=== PATIENT | male | born 1940 | race American Indian/Alaskan Native ===

== ENCOUNTER 2019-04-06 09:56 | Inpatient (IN) | payer MEDICARE, OTHER ==
[2019-04-06 11:27] LABS: Bacteria,Urine 2+ /HPF (Negative); Bilirubin,Urine NEG (Negative); Blood,Urine LG (Negative); Color,Urine Amber (Yellow); Urobilinogen,Urine < 2.0 mg/dL (<2.0)
[2019-04-06 11:32] LABS: Protein,Urine >2000 mg dL mg/dL (Negative); RBC,Urine > 182.0 /HPF (0.0-6.0); WBC,Urine > 182.0 /HPF (0.0-6.0)
[2019-04-06 11:37] LABS: Hematocrit 41.5 % (35.5-45.6); Hemoglobin 13.7 gm/dl (11.8-15.2); Mean Corpuscular HGB Conc 33 % (32-34); Mean Corpuscular Volume 96 fl (84-94); Platelet Count 207 K/mm3 (140-440); Red Blood Count 4.32 M/mm3 (3.65-5.03); Red Cell Distribution Width 13.8 % (13.2-15.2)
[2019-04-06] MEDS ORDERED: NORCO 5/325 PO ONE (11:42)
[2019-04-06] MEDS ORDERED: TYLENOL PO ONE (11:48)
[2019-04-06 11:59] LABS: BUN/Creatinine Ratio 18; Blood Urea Nitrogen 18 mg/dL (9-20); Calcium 9.2 mg/dL (8.4-10.2); Hemolysis Index 9
[2019-04-06 13:13] LABS: Basophils % (Manual) 0 % (0.0-1.8); Eosinophils % (Manual) 0 % (0.0-4.3); Total Cells Counted 100
[2019-04-06 13:14] LABS: Anisocytosis Few; Ovalocytes Few; Platelet Estimate Consistent w Auto; Poikilocytosis Few
[2019-04-06] MEDS ORDERED: ATIVAN PO ONE (13:36)
[2019-04-06] MEDS ORDERED: NACL 0.9% 1000 ML 1,000 ML IV ONE (13:40)
[2019-04-06] MEDS ORDERED: ROCEPHIN/NS 1 GM/50 ML 1 GM/50 ML BAG IV ONE (13:40)
[2019-04-06] MEDS ORDERED: HumuLIN R IV ONE (13:40)
--- NOTE | 2019-04-06 13:42 | Emergency Department Report ---
ED General Adult HPI - General Chief complaint: Urogenital-Male Stated complaint: ABDOMINAL PAIN Time Seen by Provider: 04/06/19 10:45 Source: patient Mode of arrival: Stretcher Limitations: No Limitations - History of Present Illness Initial comments: 78-year-old male with a history of prostate cancer and an indwelling Noel. His Noel stopped draining today. He noticed some blood in his urine. He has not had any obvious fever or chills. He doesn't report any other symptoms. His Noel was changed upon his arrival. He stated he did have relief of his suprapubic pain. -: Gradual, hour(s), days(s) Location: abdomen Radiation: non-radiation Severity scale (0 -10): 3 Quality: aching Consistency: constant Worsens with: none Associated Symptoms: other (hematuria) - Related Data Home Medications Medication Instructions Recorded Confirmed Last Taken Carvedilol [Coreg] 25 mg PO BID 04/02/13 04/06/19 04/05/19 Insulin Aspart Prot/Aspart(Nf) 12 unit SQ QPM 04/02/13 04/06/19 04/05/19 [NovoLOG Mix 70/30 VIAL] Insulin Aspart Prot/Aspart(Nf) 30 unit SQ QAM 04/02/13 04/06/19 04/05/19 [NovoLOG Mix 70/30 VIAL] Lisinopril [Zestril TAB] 40 mg PO QDAY 04/02/13 04/06/19 04/05/19 Metformin HCl [metFORMIN ER] 500 mg PO BID 04/02/13 04/06/19 04/05/19 Cholecalciferol (Vitamin D3) 1,000 units PO DAILY 05/31/15 04/06/19 04/05/19 [Vitamin D3 2,000 UNIT CAP] Oxybutynin [Ditropan] 1 tab PO DAILY 05/31/15 04/06/19 04/05/19 Vitamin E 1,000 unit PO DAILY 05/31/15 04/06/19 04/05/19 Acetaminophen with Codeine 1 each PO Q6HR PRN 08/05/15 04/06/19 04/05/19 [Acetaminophen-Codeine #2 TAB] B Cmplx 4/Vit D3/C/Folic/Zinc 1 each PO QDAY 08/05/15 04/06/19 04/05/19 [Vital-D Rx Tablet] Finasteride [Proscar] 5 mg PO QDAY 08/05/15 04/06/19 04/05/19 Omeprazole [PriLOSEC] 40 mg PO QDAY 08/05/15 04/06/19 04/05/19 Previous Rx's Medication Instructions Recorded Last Taken Type Aspirin EC [Aspirin Enteric Coated 81 mg PO QDAY #30 tablet.dr 06/03/15 04/05/19 Rx TAB] ISOSORBIDE MONOnitrate [Imdur ER] 30 mg PO DAILY #30 tab.er.24h 06/03/15 Rx amLODIPine [Norvasc] 10 mg PO QDAY #30 tablet 06/03/15 04/05/19 Rx Allergies Allergy/AdvReac Type Severity Reaction Status Date / Time diphenhydramine HCl Allergy Rash Verified 05/31/15 18:24 [From Benadryl] Iodinated Contrast Media Allergy Rash Verified 05/31/15 18:24 [Iodinated Contrast Media - IV Dye] ED Review of Systems ROS: Stated complaint: ABDOMINAL PAIN Other details as noted in HPI Constitutional: denies: chills, fever Eyes: denies: eye pain, eye discharge, vision change ENT: denies: ear pain, throat pain Respiratory: denies: cough, shortness of breath, wheezing Cardiovascular: denies: chest pain, palpitations Endocrine: no symptoms reported Gastrointestinal: abdominal pain. denies: nausea, diarrhea Genitourinary: hematuria. denies: urgency, dysuria Musculoskeletal: denies: back pain, joint swelling, arthralgia Skin: denies: rash, lesions Neurological: denies: headache, weakness, paresthesias Psychiatric: denies: anxiety, depression Hematological/Lymphatic: denies: easy bleeding, easy bruising ED Past Medical Hx - Past Medical History Hx Hypertension: Yes Hx Heart Attack/AMI: No Hx Congestive Heart Failure: Yes Hx Diabetes: Yes Hx Deep Vein Thrombosis: No Hx Pulmonary Embolism: No Hx Liver Disease: No Hx Arthritis: Yes Hx Asthma: Yes Hx COPD: No Hx Tuberculosis: No Additional medical history: anemia - Surgical History Hx Coronary Stent: No Hx Pacemaker: No Hx Internal Defibrillator: No Additional Surgical History: cataract surgery both eyes, hemorrhoidectomy - Social History Smoking Status: Never Smoker Substance Use Type: None - Medications Home Medications: Home Medications Medication Instructions Recorded Confirmed Last Taken Type Carvedilol [Coreg] 25 mg PO BID 04/02/13 04/06/19 04/05/19 History Insulin Aspart Prot/Aspart(Nf) 12 unit SQ QPM 04/02/13 04/06/19 04/05/19 History [NovoLOG Mix 70/30 VIAL] Insulin Aspart Prot/Aspart(Nf) 30 unit SQ QAM 04/02/13 04/06/19 04/05/19 History [NovoLOG Mix 70/30 VIAL] Lisinopril [Zestril TAB] 40 mg PO QDAY 04/02/13 04/06/19 04/05/19 History Metformin HCl [metFORMIN ER] 500 mg PO BID 04/02/13 04/06/19 04/05/19 History Cholecalciferol (Vitamin D3) 1,000 units PO DAILY 05/31/15 04/06/19 04/05/19 History [Vitamin D3 2,000 UNIT CAP] Oxybutynin [Ditropan] 1 tab PO DAILY 05/31/15 04/06/19 04/05/19 History Vitamin E 1,000 unit PO DAILY 05/31/15 04/06/19 04/05/19 History Aspirin EC [Aspirin Enteric Coated 81 mg PO QDAY #30 tablet.dr 06/03/15 04/06/19 04/05/19 Rx TAB] ISOSORBIDE MONOnitrate [Imdur ER] 30 mg PO DAILY #30 tab.er.24h 06/03/15 04/06/19 04/05/19 Rx amLODIPine [Norvasc] 10 mg PO QDAY #30 tablet 06/03/15 04/06/19 04/05/19 Rx Acetaminophen with Codeine 1 each PO Q6HR PRN 08/05/15 04/06/19 04/05/19 History [Acetaminophen-Codeine #2 TAB] B Cmplx 4/Vit D3/C/Folic/Zinc 1 each PO QDAY 08/05/15 04/06/19 04/05/19 History [Vital-D Rx Tablet] Finasteride [Proscar] 5 mg PO QDAY 08/05/15 04/06/19 04/05/19 History Omeprazole [PriLOSEC] 40 mg PO QDAY 08/05/15 04/06/19 04/05/19 History ED Physical Exam - General Limitations: No Limitations General appearance: alert, in no apparent distress - Head Head exam: Present: atraumatic, normocephalic - Eye Eye exam: Present: normal appearance. Absent: scleral icterus - ENT ENT exam: Present: mucous membranes moist - Neck Neck exam: Present: normal inspection - Respiratory Respiratory exam: Present: normal lung sounds bilaterally. Absent: respiratory distress - Cardiovascular Cardiovascular Exam: Present: regular rate, normal rhythm. Absent: systolic murmur, diastolic murmur, rubs, gallop - GI/Abdominal GI/Abdominal exam: Present: soft, normal bowel sounds. Absent: distended, tenderness, guarding, rigid - Rectal Rectal exam: Present: deferred - Extremities Exam Extremities exam: Present: normal inspection - Back Exam Back exam: Present: normal inspection - Neurological Exam Neurological exam: Present: alert, oriented X3, CN II-XII intact. Absent: motor sensory deficit - Psychiatric Psychiatric exam: Present: normal affect, normal mood - Skin Skin exam: Present: warm, dry, intact, normal color. Absent: rash - Other Other exam information: Blood noted in Noel bag which is draining well. ED Course Vital Signs 04/06/19 04/06/19 10:17 11:13 Temperature 98.4 F Pulse Rate 102 H 90 Respiratory 18 18 Rate Blood Pressure 160/74 Blood Pressure 128/52 [Left] O2 Sat by Pulse 98 95 Oximetry - Reevaluation(s) Reevaluation #1: Patient was found to have an elevated white blood cell count, hyperglycemia, elevated lactic acid level and infected urine. She is started on ceftriaxone. He is given IV fluid and insulin. He will be admitted to the hospitalist service for further care and evaluation. CT the abdomen and pelvis is ordered. 04/06/19 13:42 ED Medical Decision Making - Lab Data Result diagrams: 04/06/19 11:21 04/06/19 11:21 Laboratory Results - last 24 hr 04/06/19 04/06/19 04/06/19 11:08 11:21 11:21 WBC 14.0 H RBC 4.32 Hgb 13.7 Hct 41.5 MCV 96 H MCH 32 MCHC 33 RDW 13.8 Plt Count 207 Add Manual Diff Complete Total Counted 100 Seg Neutrophils % Die Sinker Seg Neuts % (Manual) 95.0 H Band Neutrophils % 0 Lymphocytes % (Manual) 1.0 L Reactive Lymphs % (Man) 0 Monocytes % (Manual) 2.0 Eosinophils % (Manual) 0 Basophils % (Manual) 0 Metamyelocytes % 2.0 Myelocytes % 0 Promyelocytes % 0 Blast Cells % 0 Nucleated RBC % Not Reportable Seg Neutrophils # Man 13.3 H Band Neutrophils # 0.0 Lymphocytes # (Manual) 0.1 L Abs React Lymphs (Man) 0.0 Monocytes # (Manual) 0.3 Eosinophils # (Manual) 0.0 Basophils # (Manual) 0.0 Metamyelocytes # 0.3 Myelocytes # 0.0 Promyelocytes # 0.0 Blast Cells # 0.0 WBC Morphology Not Reportable Hypersegmented Neuts Not Reportable Hyposegmented Neuts Not Reportable Hypogranular Neuts Not Reportable Smudge Cells Not Reportable Toxic Granulation Not Reportable Toxic Vacuolation Not Reportable Dohle Bodies Not Reportable Pelger-Huet Anomaly Not Reportable Martin Rods Not Reportable Platelet Estimate Consistent w auto Clumped Platelets Not Reportable Plt Clumps, EDTA Not Reportable Large Platelets Not Reportable Giant Platelets Not Reportable Platelet Satelliting Not Reportable Plt Morphology Comment Not Reportable RBC Morphology Not Reportable Dimorphic RBCs Not Reportable Polychromasia Not Reportable Hypochromasia Not Reportable Poikilocytosis Few Anisocytosis Few Microcytosis Not Reportable Macrocytosis Not Reportable Spherocytes Not Reportable Pappenheimer Bodies Not Reportable Sickle Cells Not Reportable Target Cells Not Reportable Tear Drop Cells Not Reportable Ovalocytes Few Helmet Cells Not Reportable Whitman-[place] Bodies Not Reportable Jackson Rings Not Reportable [place] Cells Not Reportable Bite Cells Not Reportable Crenated Cell Not Reportable Elliptocytes Not Reportable Acanthocytes (Spur) Not Reportable Rouleaux Not Reportable Hemoglobin C Crystals Not Reportable Schistocytes Not Reportable Malaria parasites Not Reportable Manuel Bodies Not Reportable Hem Pathologist Commnt No Sodium 129 L Potassium 3.8 Chloride 90.4 L Carbon Dioxide 19 L Anion Gap 23 BUN 18 Creatinine 1.0 Estimated GFR > 60 BUN/Creatinine Ratio 18 Glucose 296 H Calcium 9.2 Urine Color Isa Urine Turbidity Cloudy Urine pH 8.0 H Ur Specific [place] 1.014 Urine Protein >2000 mg dl Urine Glucose (UA) 50 Urine Ketones Neg Urine Blood Lg Urine Nitrite Pos Urine Bilirubin Neg Urine Urobilinogen < 2.0 Ur Leukocyte Esterase Lg Urine WBC (Auto) > 182.0 H Urine RBC (Auto) > 182.0 Urine Bacteria (Auto) 2+ Critical care attestation.: If time is entered above; I have spent that time in minutes in the direct care o f this critically ill patient, excluding procedure time. ED Disposition Clinical Impression: Acute pyelonephritis, Increased anion gap metabolic acidosis, Insulin dependent diabetes mellitus Hematuria Qualifiers: Hematuria type: gross Qualified Code(s): R31.0 - Gross hematuria Disposition: OP ADMIT IP TO THIS HOSP Is pt being admited?: Yes Does the pt Need Aspirin: No Condition: Stable Instructions: Diabetes Mellitus Type 2 in Adults (ED) Referrals: [facility] [Other] - 3-5 Days Time of Disposition: 13:45
[2019-04-06 14:12] LABS: INR 0.98 (0.87-1.13)
[2019-04-06 14:22] LABS: Alanine Aminotransferase 14 units/L (7-56); Bilirubin,Direct < 0.2 mg/dL (0-0.2)
--- NOTE | 2019-04-06 15:06 | Cat Scan Report ---
CT ABDOMEN AND PELVIS WITHOUT CONTRAST HISTORY: hematuria, history of prostate cancer, pyelonephri COMPARISON: None. TECHNIQUE: Axial CT images were obtained through the abdomen and pelvis without IV contrast. Sagittal and coronal reformatted images. All CT scans at this location are performed using CT dose reduction for ALARA by means of automated exposure control. FINDINGS: CT ABDOMEN: Lung Bases: Clear. Liver: No significant abnormality. Biliary: No significant abnormality. Spleen: No significant abnormality. Unenlarged. Pancreas: No significant abnormality. Adrenals: No significant abnormality. Kidneys: A 6 mm calcification is noted in the superior right kidney which may represent a nonobstruct ing stone. The kidneys are within normal limits otherwise. No hydronephrosis or focal lesion. Lymphatics: No lymphadenopathy. Vasculature: Diffuse aortic and iliac calcifications. No aneurysm. Bowel/Peritoneum: No significant abnormality. No free air. No free fluid. The appendix is not confide ntly identified. Mild sigmoid diverticulosis is noted. CT PELVIS: : The bladder is decompressed with a Noel catheter. No obvious bladder abnormality. The prostate g land is normal size. Osseous Structures: Mild thoracolumbar spondylosis. No suspicious bony lesion. Additional Findings: None IMPRESSION: Right renal calculus as described. No acute process is identified in the abdomen or pelvis. Atherosclerotic disease in the aorta. Signer Name: Michel Ford Jr, MD Signed: 04/06/2019 3:02 PM Workstation Name: [id number]
[2019-04-06] MEDS: TYLENOL PO PRN (20:25)
[2019-04-06] MEDS: NACL 0.9% 1000 ML 1,000 ML IV SCH (20:29)
--- NOTE | 2019-04-07 00:07 | History and Physical Report ---
History of Present Illness Date of examination: 04/06/19 Date of admission: 04/06/19 13:45 Chief complaint: No urination for one day History of present illness: 73-year-old male with history of prostate cancer, indwelling catheter, insulin- dependent diabetes, hypertension, and BPH comes in for Noel not draining any urine. Noel was changed and patient have symptomatic relief. Workup revealed high lactic acid and profound urinary tract infection. Patient also had altered sensorium--hence the admission. No fever or chills. Excess salivation because of Noel being blocked. Feels lethargic. Past Medical History Hypertension: Yes Congestive Heart Failure: Yes Diabetes: Yes Arthritis: Yes Asthma: Yes Additional medical history: anemia Surgical History Additional Surgical History: cataract surgery both eyes, hemorrhoidectomy Social History Smoking Status: Never Smoker Substance Use Type: None Family history Htn - Medications Home Medications: Home Medications Medication Instructions Recorded Confirmed Last Taken Type Carvedilol [Coreg] 25 mg PO BID 04/02/13 04/06/19 04/05/19 History Insulin Aspart Prot/Aspart(Nf) 12 unit SQ QPM 04/02/13 04/06/19 04/05/19 History [NovoLOG Mix 70/30 VIAL] Insulin Aspart Prot/Aspart(Nf) 30 unit SQ QAM 04/02/13 04/06/19 04/05/19 History [NovoLOG Mix 70/30 VIAL] Lisinopril [Zestril TAB] 40 mg PO QDAY 04/02/13 04/06/19 04/05/19 History Metformin HCl [metFORMIN ER] 500 mg PO BID 04/02/13 04/06/19 04/05/19 History Cholecalciferol (Vitamin D3) 1,000 units PO DAILY 05/31/15 04/06/19 04/05/19 History [Vitamin D3 2,000 UNIT CAP] Oxybutynin [Ditropan] 1 tab PO DAILY 05/31/15 04/06/19 04/05/19 History Vitamin E 1,000 unit PO DAILY 05/31/15 04/06/19 04/05/19 History Aspirin EC [Aspirin Enteric Coated 81 mg PO QDAY #30 tablet.dr 06/03/15 04/06/19 04/05/19 Rx TAB] ISOSORBIDE MONOnitrate [Imdur ER] 30 mg PO DAILY #30 tab.er.24h 06/03/15 04/06/19 04/05/19 Rx amLODIPine [Norvasc] 10 mg PO QDAY #30 tablet 06/03/15 04/06/19 04/05/19 Rx Acetaminophen with Codeine 1 each PO Q6HR PRN 08/05/15 04/06/19 04/05/19 History [Acetaminophen-Codeine #2 TAB] B Cmplx 4/Vit D3/C/Folic/Zinc 1 each PO QDAY 08/05/15 04/06/19 04/05/19 History [Vital-D Rx Tablet] Finasteride [Proscar] 5 mg PO QDAY 08/05/15 04/06/19 04/05/19 History Omeprazole [PriLOSEC] 40 mg PO QDAY 08/05/15 04/06/19 04/05/19 History Review of Systems ROS: Stated complaint: ABDOMINAL PAIN Other details as noted in HPI Constitutional: denies: chills, fever Eyes: denies: eye pain, eye discharge, vision change ENT: denies: ear pain, throat pain Respiratory: denies: cough, shortness of breath, wheezing Cardiovascular: denies: chest pain, palpitations Endocrine: no symptoms reported Gastrointestinal: abdominal pain. denies: nausea, diarrhea Genitourinary: hematuria. denies: urgency, dysuria Musculoskeletal: denies: back pain, joint swelling, arthralgia Skin: denies: rash, lesions Neurological: denies: headache, weakness, paresthesias Psychiatric: denies: anxiety, depression Hematological/Lymphatic: denies: easy bleeding, easy bruising . Medications and Allergies Allergies Allergy/AdvReac Type Severity Reaction Status Date / Time diphenhydramine HCl Allergy Rash Verified 05/31/15 18:24 [From Benadryl] Iodinated Contrast Media Allergy Rash Verified 05/31/15 18:24 [Iodinated Contrast Media - IV Dye] Home Medications Medication Instructions Recorded Confirmed Last Taken Type Carvedilol [Coreg] 25 mg PO BID 04/02/13 04/06/19 04/05/19 History Insulin Aspart Prot/Aspart(Nf) 12 unit SQ QPM 04/02/13 04/06/19 04/05/19 History [NovoLOG Mix 70/30 VIAL] Insulin Aspart Prot/Aspart(Nf) 30 unit SQ QAM 04/02/13 04/06/19 04/05/19 History [NovoLOG Mix 70/30 VIAL] Lisinopril [Zestril TAB] 40 mg PO QDAY 04/02/13 04/06/19 04/05/19 History Metformin HCl [metFORMIN ER] 500 mg PO BID 04/02/13 04/06/19 04/05/19 History Cholecalciferol (Vitamin D3) 1,000 units PO DAILY 05/31/15 04/06/19 04/05/19 History [Vitamin D3 2,000 UNIT CAP] Oxybutynin [Ditropan] 1 tab PO DAILY 05/31/15 04/06/19 04/05/19 History Vitamin E 1,000 unit PO DAILY 05/31/15 04/06/19 04/05/19 History Aspirin EC [Aspirin Enteric Coated 81 mg PO QDAY #30 tablet.dr 06/03/15 04/06/19 04/05/19 Rx TAB] ISOSORBIDE MONOnitrate [Imdur ER] 30 mg PO DAILY #30 tab.er.24h 06/03/15 04/06/19 04/05/19 Rx amLODIPine [Norvasc] 10 mg PO QDAY #30 tablet 06/03/15 04/06/19 04/05/19 Rx Acetaminophen with Codeine 1 each PO Q6HR PRN 08/05/15 04/06/19 04/05/19 History [Acetaminophen-Codeine #2 TAB] B Cmplx 4/Vit D3/C/Folic/Zinc 1 each PO QDAY 08/05/15 04/06/19 04/05/19 History [Vital-D Rx Tablet] Finasteride [Proscar] 5 mg PO QDAY 08/05/15 04/06/19 04/05/19 History Omeprazole [PriLOSEC] 40 mg PO QDAY 08/05/15 04/06/19 04/05/19 History Active Meds: Active Medications Acetaminophen (Tylenol) 650 mg PO Q4H PRN PRN Reason: Pain, Mild (1-3) Last Admin: 04/06/19 20:25 Dose: 650 mg Documented by: Sodium Chloride (Nacl 0.9% 1000 Ml) 1,000 mls @ 75 mls/hr IV DIRECT CAREY Stop: 04/07/19 12:00 Last Admin: 04/06/19 20:29 Dose: 75 mls/hr Documented by: Exam - Constitutional Vitals: Temp Pulse Resp BP Pulse Ox 99.3 F 87 20 128/52 96 04/06/19 20:44 04/06/19 20:44 04/06/19 20:44 04/06/19 20:44 04/06/19 20:44 General appearance: Present: no acute distress, well-nourished - EENT Eyes: Present: PERRL ENT: hearing intact, clear oral mucosa - Neck Neck: Present: supple, normal ROM - Respiratory Respiratory effort: normal Respiratory: bilateral: CTA - Cardiovascular Heart rate: 88 Rhythm: regular Heart Sounds: Present: S1 & S2. Absent: rub, click - Extremities Extremities: no ischemia, pulses intact, pulses symmetrical, No edema Peripheral Pulses: within normal limits - Abdominal General gastrointestinal: Present: soft, non-tender, non-distended, normal bowel sounds Male genitourinary: Present: normal - Integumentary Integumentary: Present: clear, warm, dry - Musculoskeletal Musculoskeletal: strength equal bilaterally, other (lethargic) - Psychiatric Psychiatric: appropriate mood/affect, intact judgment & insight, other (lethargic) - Neurologic Neurologic: CNII-XII intact, moves all extremities - Allied Health Allied health notes reviewed: nursing, case management Results - Labs CBC & Chem 7: 04/06/19 11:21 04/06/19 11:21 Labs: Laboratory Last Values WBC 14.0 K/mm3 (4.5-11.0) H 04/06/19 11:21 RBC 4.32 M/mm3 (3.65-5.03) 04/06/19 11:21 Hgb 13.7 gm/dl (11.8-15.2) 04/06/19 11:21 Hct 41.5 % (35.5-45.6) 04/06/19 11:21 MCV 96 fl (84-94) H 04/06/19 11:21 MCH 32 pg (28-32) 04/06/19 11:21 MCHC 33 % (32-34) 04/06/19 11:21 RDW 13.8 % (13.2-15.2) 04/06/19 11:21 Plt Count 207 K/mm3 (140-440) 04/06/19 11:21 Add Manual Diff Complete 04/06/19 11:21 Total Counted 100 04/06/19 11:21 Seg Neutrophils % Clinical Training Specialist 04/06/19 11:21 Seg Neuts % (Manual) 95.0 % (40.0-70.0) H 04/06/19 11:21 Band Neutrophils % 0 % 04/06/19 11:21 Lymphocytes % (Manual) 1.0 % (13.4-35.0) L 04/06/19 11:21 Reactive Lymphs % (Man) 0 % 04/06/19 11:21 Monocytes % (Manual) 2.0 % (0.0-7.3) 04/06/19 11:21 Eosinophils % (Manual) 0 % (0.0-4.3) 04/06/19 11:21 Basophils % (Manual) 0 % (0.0-1.8) 04/06/19 11:21 Metamyelocytes % 2.0 % 04/06/19 11:21 Myelocytes % 0 % 04/06/19 11:21 Promyelocytes % 0 % 04/06/19 11:21 Blast Cells % 0 % 04/06/19 11:21 Nucleated RBC % Not Reportable 04/06/19 11:21 Seg Neutrophils # Man 13.3 K/mm3 (1.8-7.7) H 04/06/19 11:21 Band Neutrophils # 0.0 K/mm3 04/06/19 11:21 Lymphocytes # (Manual) 0.1 K/mm3 (1.2-5.4) L 04/06/19 11:21 Abs React Lymphs (Man) 0.0 K/mm3 04/06/19 11:21 Monocytes # (Manual) 0.3 K/mm3 (0.0-0.8) 04/06/19 11:21 Eosinophils # (Manual) 0.0 K/mm3 (0.0-0.4) 04/06/19 11:21 Basophils # (Manual) 0.0 K/mm3 (0.0-0.1) 04/06/19 11:21 Metamyelocytes # 0.3 K/mm3 04/06/19 11:21 Myelocytes # 0.0 K/mm3 04/06/19 11:21 Promyelocytes # 0.0 K/mm3 04/06/19 11:21 Blast Cells # 0.0 K/mm3 04/06/19 11:21 WBC Morphology Not Reportable 04/06/19 11:21 Hypersegmented Neuts Not Reportable 04/06/19 11:21 Hyposegmented Neuts Not Reportable 04/06/19 11:21 Hypogranular Neuts Not Reportable 04/06/19 11:21 Smudge Cells Not Reportable 04/06/19 11:21 Toxic Granulation Not Reportable 04/06/19 11:21 Toxic Vacuolation Not Reportable 04/06/19 11:21 Dohle Bodies Not Reportable 04/06/19 11:21 Pelger-Huet Anomaly Not Reportable 04/06/19 11:21 Martin Rods Not Reportable 04/06/19 11:21 Platelet Estimate Consistent w auto 04/06/19 11:21 Clumped Platelets Not Reportable 04/06/19 11:21 Plt Clumps, EDTA Not Reportable 04/06/19 11:21 Large Platelets Not Reportable 04/06/19 11:21 Giant Platelets Not Reportable 04/06/19 11:21 Platelet Satelliting Not Reportable 04/06/19 11:21 Plt Morphology Comment Not Reportable 04/06/19 11:21 RBC Morphology Not Reportable 04/06/19 11:21 Dimorphic RBCs Not Reportable 04/06/19 11:21 Polychromasia Not Reportable 04/06/19 11:21 Hypochromasia Not Reportable 04/06/19 11:21 Poikilocytosis Few 04/06/19 11:21 Anisocytosis Few 04/06/19 11:21 Microcytosis Not Reportable 04/06/19 11:21 Macrocytosis Not Reportable 04/06/19 11:21 Spherocytes Not Reportable 04/06/19 11:21 Pappenheimer Bodies Not Reportable 04/06/19 11:21 Sickle Cells Not Reportable 04/06/19 11:21 Target Cells Not Reportable 04/06/19 11:21 Tear Drop Cells Not Reportable 04/06/19 11:21 Ovalocytes Few 04/06/19 11:21 Helmet Cells Not Reportable 04/06/19 11:21 [place] Pillar Bodies Not Reportable 04/06/19 11:21 [place] Rings Not Reportable 04/06/19 11:21 [place] Cells Not Reportable 04/06/19 11:21 Bite Cells Not Reportable 04/06/19 11:21 Crenated Cell Not Reportable 04/06/19 11:21 Elliptocytes Not Reportable 04/06/19 11:21 Acanthocytes (Spur) Not Reportable 04/06/19 11:21 Rouleaux Not Reportable 04/06/19 11:21 Hemoglobin C Crystals Not Reportable 04/06/19 11:21 Schistocytes Not Reportable 04/06/19 11:21 Malaria parasites Not Reportable 04/06/19 11:21 Manuel Bodies Not Reportable 04/06/19 11:21 Hem Pathologist Commnt No 04/06/19 11:21 PT 12.7 Sec. (12.2-14.9) 04/06/19 13:50 INR 0.98 (0.87-1.13) 04/06/19 13:50 APTT 30.0 Sec. (24.2-36.6) 04/06/19 13:50 Sodium 129 mmol/L (137-145) L 04/06/19 11:21 Potassium 3.8 mmol/L (3.6-5.0) 04/06/19 11:21 Chloride 90.4 mmol/L (98-107) L 04/06/19 11:21 Carbon Dioxide 19 mmol/L (22-30) L 04/06/19 11:21 Anion Gap 23 mmol/L 04/06/19 11:21 BUN 18 mg/dL (9-20) 04/06/19 11:21 Creatinine 1.0 mg/dL (0.8-1.5) 04/06/19 11:21 Estimated GFR > 60 ml/min 04/06/19 11:21 BUN/Creatinine Ratio 18 % 04/06/19 11:21 Glucose 296 mg/dL (75-100) H 04/06/19 11:21 POC Glucose 134 (70-105) H 04/06/19 22:18 Lactic Acid 1.00 mmol/L (0.7-2.0) 04/06/19 22:58 Calcium 9.2 mg/dL (8.4-10.2) 04/06/19 11:21 Total Bilirubin 0.50 mg/dL (0.1-1.2) 04/06/19 13:50 Direct Bilirubin < 0.2 mg/dL (0-0.2) 04/06/19 13:50 Indirect Bilirubin 0.3 mg/dL 04/06/19 13:50 AST 14 units/L (5-40) 04/06/19 13:50 ALT 14 units/L (7-56) 04/06/19 13:50 Alkaline Phosphatase 66 units/L (35-129) 04/06/19 13:50 Total Protein 7.4 g/dL (6.3-8.2) 04/06/19 13:50 Albumin 4.0 g/dL (3.9-5) 04/06/19 13:50 Albumin/Globulin Ratio 1.2 % 04/06/19 13:50 Urine Color Isa (Yellow) 04/06/19 11:08 Urine Turbidity Cloudy (Clear) 04/06/19 11:08 Urine pH 8.0 (5.0-7.0) H 04/06/19 11:08 Ur Specific [place] 1.014 (1.003-1.030) 04/06/19 11:08 Urine Protein >2000 mg dl mg/dL (Negative) 04/06/19 11:08 Urine Glucose (UA) 50 mg/dL (Negative) 04/06/19 11:08 Urine Ketones Neg mg/dL (Negative) 04/06/19 11:08 Urine Blood Lg (Negative) 04/06/19 11:08 Urine Nitrite Pos (Negative) 04/06/19 11:08 Urine Bilirubin Neg (Negative) 04/06/19 11:08 Urine Urobilinogen < 2.0 mg/dL (<2.0) 04/06/19 11:08 Ur Leukocyte Esterase Lg (Negative) 04/06/19 11:08 Urine WBC (Auto) > 182.0 /HPF (0.0-6.0) H 04/06/19 11:08 Urine RBC (Auto) > 182.0 /HPF (0.0-6.0) 04/06/19 11:08 Urine Bacteria (Auto) 2+ /HPF (Negative) 04/06/19 11:08 Short CBC 04/06/19 Range/Units 11:21 WBC 14.0 H (4.5-11.0) K/mm3 Hgb 13.7 (11.8-15.2) gm/dl Hct 41.5 (35.5-45.6) % Plt Count 207 (140-440) K/mm3 BMP 04/06/19 11:21 Sodium 129 L Potassium 3.8 Chloride 90.4 L Carbon Dioxide 19 L BUN 18 Creatinine 1.0 Glucose 296 H Calcium 9.2 Liver Function 04/06/19 Range/Units 13:50 Total Bilirubin 0.50 (0.1-1.2) mg/dL Direct Bilirubin < 0.2 (0-0.2) mg/dL AST 14 (5-40) units/L ALT 14 (7-56) units/L Alkaline Phosphatase 66 (35-129) units/L Albumin 4.0 (3.9-5) g/dL Urine 04/06/19 Range/Units 11:08 Urine Color Isa (Yellow) Urine pH 8.0 H (5.0-7.0) Ur Specific [place] 1.014 (1.003-1.030) Urine Protein >2000 mg dl (Negative) mg/dL Urine Glucose (UA) 50 (Negative) mg/dL - Imaging and Cardiology CT scan - abdomen: report reviewed Imaging and Cardiology: CT abdomen IMPRESSION: Right renal calculus as described. No acute process is identified in the abdomen or pelvis. Atherosclerotic disease in the aorta. Assessment and Plan Advance Directives: Yes (full code) VTE prophylaxis?: Chemical Plan of care discussed with patient/family: Yes - Patient Problems (1) SIRS (systemic inflammatory response syndrome) Current Visit: Yes Status: Acute Plan to address problem: Patient has IV white count and urinary tract infection (2) Acute encephalopathy Current Visit: Yes Status: Acute Plan to address problem: Secondary to urinary tract infection and elevated lactic acid with possible sepsis (3) Acute pyelonephritis Current Visit: Yes Status: Acute Plan to address problem: IV Rocephin pending urine cultures and blood cultures (4) Hypertension Current Visit: Yes Status: Chronic Qualifiers: Hypertension type: essential hypertension Qualified Code(s): I10 - Essential (primary) hypertension Plan to address problem: Continue antihypertensiveslaboratory white count 11. (5) Insulin dependent diabetes mellitus Current Visit: Yes Status: Acute Plan to address problem: Continue home insulin and coverage Check hemoglobin A1c (6) OAB (overactive bladder) Current Visit: Yes Status: Chronic Plan to address problem: Continue Ditropan (7) BPH (benign prostatic hyperplasia) Current Visit: Yes Status: Chronic Qualifiers: Lower urinary tract symptom presence: symptoms present Plan to address problem: Continue finasteride (8) GERD (gastroesophageal reflux disease) Current Visit: Yes Status: Acute (9) DVT prophylaxis Current Visit: Yes Status: Acute Plan to address problem: On heparin and GI prophylaxis
[2019-04-07] MEDS ORDERED: TYLENOL #3 PO PRN (00:13)
[2019-04-07] MEDS ORDERED: REGLAN IV PRN (00:15)
[2019-04-07] MEDS ORDERED: SODIUM CHLORIDE FLUSH SYRINGE 10 ML IV PRN (00:15)
[2019-04-07] MEDS ORDERED: ZOFRAN IV PRN (00:15)
[2019-04-07] MEDS ORDERED: PERCOCET 5/325 PO PRN (00:15)
[2019-04-07] MEDS ORDERED: DILAUDID IV PRN (00:15)
[2019-04-07] MEDS ORDERED: TYLENOL PO PRN (00:15)
[2019-04-07] MEDS: HEPARIN SUB-Q SCH ×3 (01:12→23:04)
[2019-04-07] MEDS: GLUCOPHAGE XR PO SCH ×3 (01:12→16:30)
[2019-04-07] MEDS: COREG PO SCH ×3 (01:13→23:02)
[2019-04-07] MEDS ORDERED: MIRALAX 3350 PO PRN (02:05)
[2019-04-07] MEDS: COLACE PO SCH ×3 (05:38→23:03)
[2019-04-07] MEDS: HumaLOG SUB-Q SCH ×4 (07:42→23:04)
[2019-04-07] MEDS: PROSCAR PO SCH (09:13)
[2019-04-07] MEDS: IMDUR PO SCH (09:14)
[2019-04-07] MEDS: DITROPAN PO SCH (09:15)
[2019-04-07] MEDS: PROTONIX PO SCH (09:15)
[2019-04-07] MEDS: HALFPRIN EC PO SCH (09:19)
[2019-04-07] MEDS: VITAMIN D3 PO SCH (09:19)
[2019-04-07] MEDS: ZESTRIL PO SCH (09:20)
[2019-04-07] MEDS: VITAMIN E CAP PO SCH (09:21)
[2019-04-07] MEDS: ROCEPHIN/NS 2 GM/100 ML 2 GM/100 ML BAG IV SCH (09:22)
[2019-04-07] MEDS: DULCOLAX PR PRN (09:22)
[2019-04-07] MEDS: NACL 0.9% 1000 ML 1,000 ML IV SCH (09:26)
[2019-04-07] MEDS ORDERED: ASPART SQ SCH ×2 (10:00→18:00)
[2019-04-07] MEDS ORDERED: INSULIN ASPART PROT SQ SCH ×2 (10:00→18:00)
[2019-04-07] MEDS: SODIUM CHLORIDE FLUSH SYRINGE 10 ML IV SCH ×2 (11:22→23:04)
--- NOTE | 2019-04-07 13:46 | Progress Note ---
Assessment and Plan Assessment and plan: (1) sepsis due to UTI Current Visit: Yes Status: Acute Plan to address problem: Patient has IV white count and urinary tract infection Patient still had fever (2) Acute encephalopathy Current Visit: Yes Status: Acute Plan to address problem: Secondary to urinary tract infection and elevated lactic acid with possible sepsis Resolved (3) UTI Current Visit: Yes Status: Acute Plan to address problem: IV Rocephin pending urine cultures and blood cultures (4) Hypertension Current Visit: Yes Status: Chronic Qualifiers: Hypertension type: essential hypertension Qualified Code(s): I10 - Essential (primary) hypertension Plan to address problem: Continue antihypertensives (5) Insulin dependent diabetes mellitus Current Visit: Yes Status: Acute Plan to address problem: Continue home insulin and coverage hemoglobin A1c 6.8 (6) OAB (overactive bladder) Current Visit: Yes Status: Chronic Plan to address problem: Continue Ditropan (7) BPH (benign prostatic hyperplasia) Current Visit: Yes Status: Chronic Qualifiers: Lower urinary tract symptom presence: symptoms present Plan to address problem: Continue finasteride (8) GERD (gastroesophageal reflux disease) Current Visit: Yes Status: Acute (9) DVT prophylaxis Current Visit: Yes Status: Acute Plan to address problem: On heparin and GI prophylaxis Disposition; Per clinical course History Interval history: Patient was seen and evaluated this morning, patient had episode of fever overnight. Patient was alert and oriented. Hospitalist Physical - Physical exam Narrative exam: Not in cardiopulmonary distress. The patient appeared well nourished and normally developed. Vital signs as documented. Head exam is unremarkable. No scleral icterus . Neck is without jugular venous distension, thyromegaly, or carotid bruits. Lungs are clear to auscultation. Cardiac exam reveals regular rate and Rhythm. Abdominal exam reveals normal bowel sounds, no masses, no organomegaly and no aortic enlargement. Extremities are nonedematous and both femoral and pedal pulses are normal. [employer] [employer] CONSULTANT: Alert and oriented 3. No focal weakness. - Constitutional Vitals: Temp Pulse Resp BP Pulse Ox 99.0 F 89 18 119/59 96 04/07/19 07:10 04/07/19 09:20 04/07/19 07:10 04/07/19 09:20 04/07/19 07:10 General appearance: Present: no acute distress, well-nourished Results - Labs CBC & Chem 7: 04/06/19 11:21 04/06/19 11:21 Labs: Laboratory Last Values WBC 14.0 K/mm3 (4.5-11.0) H 04/06/19 11:21 RBC 4.32 M/mm3 (3.65-5.03) 04/06/19 11:21 Hgb 13.7 gm/dl (11.8-15.2) 04/06/19 11:21 Hct 41.5 % (35.5-45.6) 04/06/19 11:21 MCV 96 fl (84-94) H 04/06/19 11:21 MCH 32 pg (28-32) 04/06/19 11:21 MCHC 33 % (32-34) 04/06/19 11:21 RDW 13.8 % (13.2-15.2) 04/06/19 11:21 Plt Count 207 K/mm3 (140-440) 04/06/19 11:21 Add Manual Diff Complete 04/06/19 11:21 Total Counted 100 04/06/19 11:21 Seg Neutrophils % Babcock Tester 04/06/19 11:21 Seg Neuts % (Manual) 95.0 % (40.0-70.0) H 04/06/19 11:21 Band Neutrophils % 0 % 04/06/19 11:21 Lymphocytes % (Manual) 1.0 % (13.4-35.0) L 04/06/19 11:21 Reactive Lymphs % (Man) 0 % 04/06/19 11:21 Monocytes % (Manual) 2.0 % (0.0-7.3) 04/06/19 11:21 Eosinophils % (Manual) 0 % (0.0-4.3) 04/06/19 11:21 Basophils % (Manual) 0 % (0.0-1.8) 04/06/19 11:21 Metamyelocytes % 2.0 % 04/06/19 11:21 Myelocytes % 0 % 04/06/19 11:21 Promyelocytes % 0 % 04/06/19 11:21 Blast Cells % 0 % 04/06/19 11:21 Nucleated RBC % Not Reportable 04/06/19 11:21 Seg Neutrophils # Man 13.3 K/mm3 (1.8-7.7) H 04/06/19 11:21 Band Neutrophils # 0.0 K/mm3 04/06/19 11:21 Lymphocytes # (Manual) 0.1 K/mm3 (1.2-5.4) L 04/06/19 11:21 Abs React Lymphs (Man) 0.0 K/mm3 04/06/19 11:21 Monocytes # (Manual) 0.3 K/mm3 (0.0-0.8) 04/06/19 11:21 Eosinophils # (Manual) 0.0 K/mm3 (0.0-0.4) 04/06/19 11:21 Basophils # (Manual) 0.0 K/mm3 (0.0-0.1) 04/06/19 11:21 Metamyelocytes # 0.3 K/mm3 04/06/19 11:21 Myelocytes # 0.0 K/mm3 04/06/19 11:21 Promyelocytes # 0.0 K/mm3 04/06/19 11:21 Blast Cells # 0.0 K/mm3 04/06/19 11:21 WBC Morphology Not Reportable 04/06/19 11:21 Hypersegmented Neuts Not Reportable 04/06/19 11:21 Hyposegmented Neuts Not Reportable 04/06/19 11:21 Hypogranular Neuts Not Reportable 04/06/19 11:21 Smudge Cells Not Reportable 04/06/19 11:21 Toxic Granulation Not Reportable 04/06/19 11:21 Toxic Vacuolation Not Reportable 04/06/19 11:21 Dohle Bodies Not Reportable 04/06/19 11:21 Pelger-Huet Anomaly Not Reportable 04/06/19 11:21 Martin Rods Not Reportable 04/06/19 11:21 Platelet Estimate Consistent w auto 04/06/19 11:21 Clumped Platelets Not Reportable 04/06/19 11:21 Plt Clumps, EDTA Not Reportable 04/06/19 11:21 Large Platelets Not Reportable 04/06/19 11:21 Giant Platelets Not Reportable 04/06/19 11:21 Platelet Satelliting Not Reportable 04/06/19 11:21 Plt Morphology Comment Not Reportable 04/06/19 11:21 RBC Morphology Not Reportable 04/06/19 11:21 Dimorphic RBCs Not Reportable 04/06/19 11:21 Polychromasia Not Reportable 04/06/19 11:21 Hypochromasia Not Reportable 04/06/19 11:21 Poikilocytosis Few 04/06/19 11:21 Anisocytosis Few 04/06/19 11:21 Microcytosis Not Reportable 04/06/19 11:21 Macrocytosis Not Reportable 04/06/19 11:21 Spherocytes Not Reportable 04/06/19 11:21 Pappenheimer Bodies Not Reportable 04/06/19 11:21 Sickle Cells Not Reportable 04/06/19 11:21 Target Cells Not Reportable 04/06/19 11:21 Tear Drop Cells Not Reportable 04/06/19 11:21 Ovalocytes Few 04/06/19 11:21 Helmet Cells Not Reportable 04/06/19 11:21 [place] Bodies Not Reportable 04/06/19 11:21 [place] Rings Not Reportable 04/06/19 11:21 Marisela Cells Not Reportable 04/06/19 11:21 Bite Cells Not Reportable 04/06/19 11:21 Crenated Cell Not Reportable 04/06/19 11:21 Elliptocytes Not Reportable 04/06/19 11:21 Acanthocytes (Spur) Not Reportable 04/06/19 11:21 Rouleaux Not Reportable 04/06/19 11:21 Hemoglobin C Crystals Not Reportable 04/06/19 11:21 Schistocytes Not Reportable 04/06/19 11:21 Malaria parasites Not Reportable 04/06/19 11:21 Manuel Bodies Not Reportable 04/06/19 11:21 Hem Pathologist Commnt No 04/06/19 11:21 PT 12.7 Sec. (12.2-14.9) 04/06/19 13:50 INR 0.98 (0.87-1.13) 04/06/19 13:50 APTT 30.0 Sec. (24.2-36.6) 04/06/19 13:50 Sodium 129 mmol/L (137-145) L 04/06/19 11:21 Potassium 3.8 mmol/L (3.6-5.0) 04/06/19 11:21 Chloride 90.4 mmol/L (98-107) L 04/06/19 11:21 Carbon Dioxide 19 mmol/L (22-30) L 04/06/19 11:21 Anion Gap 23 mmol/L 04/06/19 11:21 BUN 18 mg/dL (9-20) 04/06/19 11:21 Creatinine 1.0 mg/dL (0.8-1.5) 04/06/19 11:21 Estimated GFR > 60 ml/min 04/06/19 11:21 BUN/Creatinine Ratio 18 % 04/06/19 11:21 Glucose 296 mg/dL (75-100) H 04/06/19 11:21 POC Glucose 83 (70-105) 04/07/19 11:32 Hemoglobin A1c 6.8 % (4-6) H 04/07/19 03:58 Lactic Acid 1.00 mmol/L (0.7-2.0) 04/06/19 22:58 Calcium 9.2 mg/dL (8.4-10.2) 04/06/19 11:21 Total Bilirubin 0.50 mg/dL (0.1-1.2) 04/06/19 13:50 Direct Bilirubin < 0.2 mg/dL (0-0.2) 04/06/19 13:50 Indirect Bilirubin 0.3 mg/dL 04/06/19 13:50 AST 14 units/L (5-40) 04/06/19 13:50 ALT 14 units/L (7-56) 04/06/19 13:50 Alkaline Phosphatase 66 units/L (35-129) 04/06/19 13:50 Total Protein 7.4 g/dL (6.3-8.2) 04/06/19 13:50 Albumin 4.0 g/dL (3.9-5) 04/06/19 13:50 Albumin/Globulin Ratio 1.2 % 04/06/19 13:50 Urine Color Isa (Yellow) 04/06/19 11:08 Urine Turbidity Cloudy (Clear) 04/06/19 11:08 Urine pH 8.0 (5.0-7.0) H 04/06/19 11:08 Ur Specific [place] 1.014 (1.003-1.030) 04/06/19 11:08 Urine Protein >2000 mg dl mg/dL (Negative) 04/06/19 11:08 Urine Glucose (UA) 50 mg/dL (Negative) 04/06/19 11:08 Urine Ketones Neg mg/dL (Negative) 04/06/19 11:08 Urine Blood Lg (Negative) 04/06/19 11:08 Urine Nitrite Pos (Negative) 04/06/19 11:08 Urine Bilirubin Neg (Negative) 04/06/19 11:08 Urine Urobilinogen < 2.0 mg/dL (<2.0) 04/06/19 11:08 Ur Leukocyte Esterase Lg (Negative) 04/06/19 11:08 Urine WBC (Auto) > 182.0 /HPF (0.0-6.0) H 04/06/19 11:08 Urine RBC (Auto) > 182.0 /HPF (0.0-6.0) 04/06/19 11:08 Urine Bacteria (Auto) 2+ /HPF (Negative) 04/06/19 11:08 Active Medications - Current Medications Current Medications: Generic Name Dose Route Start Last Admin Trade Name Freq PRN Reason Stop Dose Admin Acetaminophen 650 mg 04/06/19 20:07 04/06/19 20:25 Tylenol PO 650 mg Q4H PRN Administration Pain, Mild (1-3) Acetaminophen/Codeine Phosphate 1 tab 04/07/19 00:13 04/07/19 09:15 Tylenol #3 PO 1 tab Q6H PRN Administration PAIN (4-6) Amlodipine Besylate 10 mg 04/07/19 10:00 04/07/19 09:20 Norvasc PO Not Given QDAY CAREY Aspirin 81 mg 04/07/19 10:00 04/07/19 09:19 Halfprin Ec PO 81 mg QDAY CAREY Administration Bisacodyl 10 mg 04/07/19 10:00 04/07/19 09:22 Dulcolax MI 10 mg QDAY PRN Administration constipation Carvedilol 25 mg 04/07/19 01:00 04/07/19 09:15 Coreg PO 25 mg BID CAREY Administration Cholecalciferol 1,000 unit 04/07/19 10:00 04/07/19 09:19 Vitamin D3 PO 1,000 unit DAILY CAREY Administration Docusate Sodium 100 mg 04/07/19 03:00 04/07/19 09:13 Colace PO 100 mg BID CAREY Administration Finasteride 5 mg 04/07/19 10:00 04/07/19 09:13 Proscar PO 5 mg QDAY CARE[facility] Administration Heparin Sodium (Porcine) 5,000 unit 04/07/19 00:30 04/07/19 09:26 Heparin SUB-Q 5,000 unit Q12HR C[facility]Y Administration Hydromorphone HCl 0.5 mg 04/07/19 00:15 04/07/19 01:14 Dilaudid IV 0.5 mg Q3H PRN Administration Pain , Severe (7-10) Ceftriaxone Sodium 2 gm in 100 mls @ 200 mls/hr 04/07/19 10:00 04/07/19 09:22 Rocephin/Ns 2 Gm/100 Ml IV 200 mls/hr Q24HR [facility] Administration Protocol Insulin Human Isoph/Insulin Regular 12 unit 04/07/19 18:00 Humulin 70/30 SUB-Q QPM CAREY Insulin Human Isoph/Insulin Regular 30 unit 04/07/19 08:00 04/07/19 08:34 Humulin 70/30 SUB-Q 30 unit QAMDIAB [facility] Administration Insulin Human Lispro 0 unit 04/07/19 07:30 04/07/19 11:59 Humalog SUB-Q Not Given ACHS [facility] Protocol Isosorbide Mononitrate 30 mg 04/07/19 10:00 04/07/19 09:14 Imdur PO 30 mg DAILY [facility] Administration Lisinopril 40 mg 04/07/19 10:00 04/07/19 09:20 Zestril PO Not Given QDAY [facility] Metformin HCl 500 mg 04/07/19 00:15 04/07/19 08:34 Glucophage Xr PO 500 mg BIDDIAB [facility] Administration Metoclopramide HCl 10 mg 04/07/19 00:15 Reglan IV Q6H PRN Nausea And Vomiting Ondansetron HCl 4 mg 04/07/19 00:15 Zofran IV Q8H PRN Nausea And Vomiting Oxybutynin Chloride 5 mg 04/07/19 10:00 04/07/19 09:15 Ditropan PO 5 mg DAILY [facility] Administration Oxycodone/Acetaminophen 1 tab 04/07/19 00:15 Percocet 5/325 PO Q6H PRN Pain, Moderate (4-6) Pantoprazole Sodium 40 mg 04/07/19 10:00 04/07/19 09:15 Protonix PO 40 mg QDAY [facility] Administration Polyethylene Glycol 17 gm 04/07/19 02:05 04/07/19 05:38 Miralax 3350 PO 17 gm QDAY PRN Administration Constipation Sodium Chloride 10 ml 04/07/19 10:00 04/07/19 11:22 Sodium Chloride Flush Syringe 10 Ml IV Not Given BID CAREY Sodium Chloride 10 ml 04/07/19 00:15 Sodium Chloride Flush Syringe 10 Ml IV PRN PRN LINE FLUSH Vitamin E 1,000 unit 04/07/19 10:00 04/07/19 09:21 Vitamin E Cap PO 1,000 unit DAILY CAREY Administration
[2019-04-07] MEDS: TYLENOL PO PRN (19:46)
[2019-04-07] MEDS ORDERED: PROVENTIL IH PRN (23:26)
[2019-04-08 06:04] LABS: Basophils % (Auto) 0.1 % (0.0-1.8); Eosinophils % (Auto) 0.7 % (0.0-4.3); Hematocrit 35.3 % (35.5-45.6); Hemoglobin 11.9 gm/dl (11.8-15.2); Lymphocytes # (Auto) 0.9 K/mm3 (1.2-5.4); Lymphocytes % (Auto) 12.1 % (13.4-35.0); Mean Corpuscular HGB Conc 34 % (32-34); Mean Corpuscular Volume 97 fl (84-94); Monocytes # (Auto) 0.9 K/mm3 (0.0-0.8); Monocytes % (Auto) 11.6 % (0.0-7.3); Platelet Count 190 K/mm3 (140-440); Red Blood Count 3.65 M/mm3 (3.65-5.03); Red Cell Distribution Width 13.5 % (13.2-15.2)
[2019-04-08 06:29] LABS: Alanine Aminotransferase 10 units/L (7-56); Albumin 3.1 g/dL (3.9-5); BUN/Creatinine Ratio 16; Blood Urea Nitrogen 11 mg/dL (9-20); Calcium 8.6 mg/dL (8.4-10.2); Hemolysis Index 15
[2019-04-08] MEDS: HumaLOG SUB-Q SCH ×2 (07:56→13:06)
[2019-04-08] MEDS: DULCOLAX PR PRN (07:57)
[2019-04-08] MEDS: GLUCOPHAGE XR PO SCH (08:39)
[2019-04-08] MEDS: HEPARIN SUB-Q SCH (10:00)
--- NOTE | 2019-04-08 10:07 | Discharge Summary ---
Providers - Providers Date of Admission: 04/06/19 13:45 Date of discharge: 04/08/19 Attending physician: JOSE M BELL MD Hospitalization Reason for admission: UTI, sepsis Condition: Stable Hospital course: 73-year-old male with history of prostate cancer, indwelling catheter, insulin- dependent diabetes, hypertension, and BPH comes in for Orellana not draining any urine. Orellana was changed and patient have symptomatic relief. Workup revealed high lactic acid and profound urinary tract infection. Patient also had altered sensorium--hence the admission. No fever or chills. Excess salivation because of Orellana being blocked. Feels lethargic. sepsis due to UTI; patient was treated with IV antibiotics and d/tamika with PO antibiotics. Acute Metabolic encephalopathy - resolved, patient was alert and oriented Hypertension; Continue antihypertensives Insulin dependent diabetes mellitus; Continue home insulin and coverage hemoglobin A1c 6.8 OAB (overactive bladder); patient has indwelling orellana catheter and will follow with urology Continue Ditropan Patient discharged back to SNF in a stable condition. Disposition: [id number] SNF [facility] Time spent for discharge: 34 minutes - Discharge Diagnoses (1) UTI (urinary tract infection) Status: Acute (2) Acute encephalopathy Status: Acute Comment: Metabolic (3) Sepsis, unspecified organism Status: Acute Qualifiers: Sepsis acute organ dysfunction status: with acute organ dysfunction Severe sepsis acute organ dysfunction type: encephalopathy Core Measure Documentation - Palliative Care Palliative Care/ Comfort Measures: Not Applicable - Core Measures Any of the following diagnoses?: none Exam - Physical Exam Narrative exam: Not in cardiopulmonary distress. The patient appeared well nourished and normally developed. Vital signs as documented. Head exam is unremarkable. No scleral icterus . Neck is without jugular venous distension, thyromegaly, or carotid bruits. Lungs are clear to auscultation. Cardiac exam reveals regular rate and Rhythm. Abdominal exam reveals normal bowel sounds, no masses, no organomegaly and no aortic enlargement. Extremities are nonedematous and both femoral and pedal pulses are normal. MANAGER DIVISION: Alert and oriented 3. No focal weakness. - Constitutional Vitals: Temp Pulse Resp BP Pulse Ox 98.5 F 75 20 143/61 98 04/08/19 07:16 04/08/19 07:16 04/08/19 07:16 04/08/19 07:16 04/08/19 07:16 Plan Activity: no restrictions Weight Bearing Status: Full Weight Bearing Diet: low salt, diabetic Follow up with: [facility] [Other] - 3-5 Days Prescriptions: cefUROXime [Ceftin] 250 mg PO Q12H #12 tablet Codeine Phosphate/Guaifenesin [Guaifenesin-Codeine Syrup] 10 ml PO Q6H PRN #1 bottle PRN Reason: Cough
[2019-04-08] MEDS ORDERED: DULCOLAX PO PRN (11:00)
[2019-04-08] MEDS: DITROPAN PO SCH (11:37)
[2019-04-08] MEDS: IMDUR PO SCH (11:37)
[2019-04-08] MEDS: COREG PO SCH (11:37)
[2019-04-08 11:38] VITALS: BP 146/61
[2019-04-08] MEDS: COLACE PO SCH (11:38)
[2019-04-08] MEDS: VITAMIN D3 PO SCH (11:38)
[2019-04-08] MEDS: PROTONIX PO SCH (11:38)
[2019-04-08] MEDS: HALFPRIN EC PO SCH (11:38)
[2019-04-08] MEDS: PROSCAR PO SCH (11:39)
[2019-04-08] MEDS: ZESTRIL PO SCH (11:39)
[2019-04-08] MEDS: ROCEPHIN/NS 2 GM/100 ML 2 GM/100 ML BAG IV SCH (11:40)
[2019-04-08] MEDS: SODIUM CHLORIDE FLUSH SYRINGE 10 ML IV SCH (11:41)
[2019-04-08] MEDS: VITAMIN E CAP PO SCH (11:41)
== END 2019-04-08 14:30 | DRG 871 ==
LOC: ED 09:56 → 2B-ACE 13:45
PROVIDERS: ADMIT Internal Medicine; ATTEND Internal Medicine
DX: A41.9 Sepsis, unspecified organism (principal); G93.41 Metabolic encephalopathy; N10 Acute pyelonephritis; E11.9 Type 2 diabetes mellitus without complications; N32.81 Overactive bladder; N40.0 Benign prostatic hyperplasia without lower urinary tract symptoms; K21.9 Gastro-esophageal reflux disease without esophagitis; I11.0 Hypertensive heart disease with heart failure; I50.9 Heart failure, unspecified; R31.9 Hematuria, unspecified; M19.90 Unspecified osteoarthritis, unspecified site; J45.909 Unspecified asthma, uncomplicated; Z85.46 Personal history of malignant neoplasm of prostate; Z79.4 Long term (current) use of insulin; Z82.49 Family history of ischemic heart disease and other diseases of the circulatory system; Z79.899 Other long term (current) drug therapy; Z79.82 Long term (current) use of aspirin
CPT/HCPCS: 36415; 74176; 80048; 80053; 80076; 81001; 82140; 82962; 83036; 85007; 85025; 85610; 85730; 87086; 94640; 96365; 96368; 96375; G0378; J0696; J1170; J1644; J1815; J7030

== ENCOUNTER 2019-05-14 11:08 | Emergency (ER) | payer SELFPAY ==
--- NOTE | 2019-05-14 11:20 | Event Note ---
ED Screening Note Date of service: 05/14/19 ED Screening Note: This initial assessment/diagnostic orders/clinical plan/treatment(s) is/are subject to change based on patients health status, clinical progression and re- assessment by fellow clinical providers in the ED. Further treatment and workup at subsequent clinical providers discretion. Patient/guardian urged not to elope from the ED as their condition may be serious if not clinically assessed and managed. Initial orders include: 78yo BM states that he has pain at the site of his catheter that radiates to his abdomen x 1 day.
[2019-05-14] MEDS ORDERED: ASPIRIN 81 MG TAB CHEW PO ONE (12:09)
--- NOTE | 2019-05-14 12:19 | Emergency Department Report ---
ED Chest Pain HPI - General Chief Complaint: Urogenital-Male Stated Complaint: R LEG/GENITAL PAIN Time Seen by Provider: 05/14/19 11:16 Source: patient Mode of arrival: Ambulatory Limitations: No Limitations - History of Present Illness Initial Comments: 78-year-old -[place] male patient with history of CHF, CAD, ID, hypertension, diabetes, and BPH presents with complaints of urinary catheter not working since last night and chest tightness starting 1 hour ago. Patient states he is now having pain in his lower abdomen. He denies any fevers /chills/sweats, nausea/vomiting, stool changes, or blood noted in his urine yesterday. Patient states he also has a history of asthma and that he feels his chest is tight because his abdomen is very full. Patient states his chest is not painful it just feels tight. He denies any shortness of breath, cough, orthopnea, swelling, dizziness, or headaches. MD Complaint: chest pain, other (urinary catheter not working ) Severity scale (0 -10): 7 - Related Data Home Medications Medication Instructions Recorded Confirmed Last Taken Insulin Aspart Prot/Aspart(Nf) 12 unit SQ QPM 04/02/13 04/06/19 04/05/19 [NovoLOG Mix 70/30 VIAL] Insulin Aspart Prot/Aspart(Nf) 30 unit SQ QAM 04/02/13 04/06/19 04/05/19 [NovoLOG Mix 70/30 VIAL] Lisinopril [Zestril TAB] 40 mg PO QDAY 04/02/13 04/06/19 04/05/19 Metformin HCl [metFORMIN ER] 500 mg PO BID 04/02/13 04/06/19 04/05/19 carvediloL [Coreg] 25 mg PO BID 04/02/13 04/06/19 04/05/19 Cholecalciferol (Vitamin D3) 1,000 units PO DAILY 05/31/15 04/06/19 04/05/19 [Vitamin D3 2,000 UNIT CAP] Oxybutynin [Ditropan] 1 tab PO DAILY 05/31/15 04/06/19 04/05/19 Vitamin E 1,000 unit PO DAILY 05/31/15 04/06/19 04/05/19 Acetaminophen with Codeine 1 each PO Q6HR PRN 08/05/15 04/06/19 04/05/19 [Acetaminophen-Codeine #2 TAB] B Cmplx 4/Vit D3/C/Folic/Zinc 1 each PO QDAY 08/05/15 04/06/19 04/05/19 [Vital-D Rx Tablet] Finasteride [Proscar] 5 mg PO QDAY 08/05/15 04/06/19 04/05/19 Omeprazole [PriLOSEC] 40 mg PO QDAY 08/05/15 04/06/19 04/05/19 Previous Rx's Medication Instructions Recorded Last Taken Type Aspirin EC [Halfprin EC] 81 mg PO QDAY #30 tablet.dr 06/03/15 04/05/19 Rx ISOSORBIDE MONOnitrate [Imdur ER] 30 mg PO DAILY #30 tab.er.24h 06/03/15 04/05/19 Rx amLODIPine 10 mg PO QDAY #30 tablet 06/03/15 04/05/19 Rx Codeine Phosphate/Guaifenesin 10 ml PO Q6H PRN #1 bottle 04/08/19 Unknown Rx [Guaifenesin-Codeine Syrup] cefUROXime [Ceftin] 250 mg PO Q12H #12 tablet 04/08/19 Unknown Rx Nitrofurantoin [place]/M-Cryst 100 mg PO Q12HR 7 Days #14 capsule 05/14/19 Unknown Rx [Macrobid CAP] Allergies Allergy/AdvReac Type Severity Reaction Status Date / Time diphenhydramine HCl Allergy Rash Verified 05/31/15 18:24 [From Benadryl] Iodinated Contrast Media Allergy Rash Verified 05/31/15 18:24 [Iodinated Contrast Media - IV Dye] Heart Score - HEART Score History: Slightly suspicious EKG: Non-specific Age: > 65 Risk factors: > 3 risk factors or hx of atherosclerotic disease Troponin: < normal limit HEART Score: 5 - Critical Actions Critical Actions: 4-6 pts:12-16.6% risk of adverse cardiac event. Should be admitted ED Review of Systems ROS: Stated complaint: R LEG/GENITAL PAIN Other details as noted in HPI Constitutional: denies: chills, fever Eyes: denies: vision change Respiratory: denies: cough, shortness of breath, wheezing Cardiovascular: denies: chest pain, palpitations, dyspnea on exertion, orthopnea, edema, syncope Gastrointestinal: abdominal pain. denies: nausea, vomiting, diarrhea, constipation, hematemesis, melena, hematochezia Genitourinary: other. denies: hematuria, discharge, testicular pain Skin: denies: rash, lesions Neurological: denies: headache, weakness, paresthesias Psychiatric: denies: anxiety, depression ED Past Medical Hx - Past Medical History Previous Medical History?: Yes Hx Hypertension: Yes Hx Heart Attack/AMI: No Hx Congestive Heart Failure: Yes Hx Diabetes: Yes Hx Deep Vein Thrombosis: No Hx Pulmonary Embolism: No Hx Liver Disease: No Hx Arthritis: Yes Hx Asthma: Yes Hx COPD: No Hx Tuberculosis: No Additional medical history: anemia - Surgical History Past Surgical History?: Yes Hx Coronary Stent: No Hx Pacemaker: No Hx Internal Defibrillator: No Additional Surgical History: cataract surgery both eyes, hemorrhoidectomy - Social History Smoking Status: Never Smoker Substance Use Type: None - Medications Home Medications: Home Medications Medication Instructions Recorded Confirmed Last Taken Type Insulin Aspart Prot/Aspart(Nf) 12 unit SQ QPM 04/02/13 04/06/19 04/05/19 History [NovoLOG Mix 70/30 VIAL] Insulin Aspart Prot/Aspart(Nf) 30 unit SQ QAM 04/02/13 04/06/19 04/05/19 History [NovoLOG Mix 70/30 VIAL] Lisinopril [Zestril TAB] 40 mg PO QDAY 04/02/13 04/06/19 04/05/19 History Metformin HCl [metFORMIN ER] 500 mg PO BID 04/02/13 04/06/19 04/05/19 History carvediloL [Coreg] 25 mg PO BID 04/02/13 04/06/19 04/05/19 History Cholecalciferol (Vitamin D3) 1,000 units PO DAILY 05/31/15 04/06/19 04/05/19 History [Vitamin D3 2,000 UNIT CAP] Oxybutynin [Ditropan] 1 tab PO DAILY 05/31/15 04/06/19 04/05/19 History Vitamin E 1,000 unit PO DAILY 05/31/15 04/06/19 04/05/19 History Aspirin EC [Halfprin EC] 81 mg PO QDAY #30 tablet. 06/03/15 04/06/19 04/05/19 Rx ISOSORBIDE MONOnitrate [Imdur ER] 30 mg PO DAILY #30 tab.er.24h 06/03/15 04/06/19 04/05/19 Rx amLODIPine 10 mg PO QDAY #30 tablet 06/03/15 04/06/19 04/05/19 Rx Acetaminophen with Codeine 1 each PO Q6HR PRN 08/05/15 04/06/19 04/05/19 History [Acetaminophen-Codeine #2 TAB] B Cmplx 4/Vit D3/C/Folic/Zinc 1 each PO QDAY 08/05/15 04/06/19 04/05/19 History [Vital-D Rx Tablet] Finasteride [Proscar] 5 mg PO QDAY 08/05/15 04/06/19 04/05/19 History Omeprazole [PriLOSEC] 40 mg PO QDAY 08/05/15 04/06/19 04/05/19 History Codeine Phosphate/Guaifenesin 10 ml PO Q6H PRN #1 bottle 04/08/19 Unknown Rx [Guaifenesin-Codeine Syrup] cefUROXime [Ceftin] 250 mg PO Q12H #12 tablet 04/08/19 Unknown Rx Nitrofurantoin [place]/M-Cryst 100 mg PO Q12HR 7 Days #14 capsule 05/14/19 Unknown Rx [Macrobid CAP] ED Physical Exam - General Limitations: No Limitations General appearance: alert, in no apparent distress - Head Head exam: Present: atraumatic, normocephalic - Eye Eye exam: Present: normal appearance - ENT ENT exam: Present: mucous membranes moist - Neck Neck exam: Present: normal inspection, full ROM. Absent: lymphadenopathy - Respiratory Respiratory exam: Present: normal lung sounds bilaterally. Absent: respiratory distress - Cardiovascular Cardiovascular Exam: Present: regular rate, normal rhythm, normal heart sounds - GI/Abdominal GI/Abdominal exam: Present: soft, tenderness (mild suprapubic ), rigid. Absent: distended, guarding, rebound, normal bowel sounds - Rectal Rectal exam: Present: deferred - Extremities Exam Extremities exam: Absent: pedal edema, joint swelling, calf tenderness - Back Exam Back exam: Present: normal inspection ED Course Vital Signs 05/14/19 05/14/19 05/14/19 11:15 11:41 12:37 Temperature 97.5 F L Pulse Rate 82 Respiratory 20 16 16 Rate Blood Pressure 119/83 Blood Pressure [Right] O2 Sat by Pulse 99 Oximetry 05/14/19 05/14/19 05/14/19 13:20 14:56 16:39 Temperature 97.8 F 98.1 F Pulse Rate 80 89 Respiratory 16 16 Rate Blood Pressure Blood Pressure 133/61 121/61 [Right] O2 Sat by Pulse 98 98 Oximetry ANASTASIA score - Anastasia Score Age > 65: (1) Yes Aspirin use within the Past 7 Days: (1) Yes 3 or more CAD Risk Factors: (1) Yes 2 or more Angina events in past 24 hrs: (1) Yes Known CAD with more than 50% Stenosis: (0) No Elevated Cardiac Markers: (0) No ST Deviation Greater than 0.5mm: (0) No ANASTASIA Score: 4 ED Medical Decision Making - Lab Data Result diagrams: 05/14/19 12:20 05/14/19 12:20 Lab Results 05/14/19 05/14/19 05/14/19 Range/Units 12:20 12:20 12:20 WBC 7.3 (4.5-11.0) K/mm3 RBC 3.76 (3.65-5.03) M/mm3 Hgb 12.6 (11.8-15.2) gm/dl Hct 36.4 (35.5-45.6) % MCV 97 H (84-94) fl MCH 33 H (28-32) pg MCHC 35 H (32-34) % RDW 14.7 (13.2-15.2) % Plt Count 226 (140-440) K/mm3 Lymph % (Auto) 17.1 (13.4-35.0) % [place] % (Auto) 10.0 H (0.0-7.3) % Eos % (Auto) 1.5 (0.0-4.3) % Baso % (Auto) 0.2 (0.0-1.8) % Lymph # 1.2 (1.2-5.4) K/mm3 [place] # 0.7 (0.0-0.8) K/mm3 Eos # 0.1 (0.0-0.4) K/mm3 Baso # 0.0 (0.0-0.1) K/mm3 Seg Neutrophils % 71.2 H (40.0-70.0) % Seg Neutrophils # 5.2 (1.8-7.7) K/mm3 Sodium 131 L (137-145) mmol/L Potassium 4.6 (3.6-5.0) mmol/L Chloride 91.0 L (98-107) mmol/L Carbon Dioxide 26 (22-30) mmol/L Anion Gap 19 mmol/L BUN 16 (9-20) mg/dL Creatinine 0.9 (0.8-1.5) mg/dL Estimated GFR > 60 ml/min BUN/Creatinine Ratio 18 % Glucose 144 H (75-100) mg/dL Calcium 9.6 (8.4-10.2) mg/dL Troponin T < 0.010 (0.00-0.029) ng/mL NT-Pro-B Natriuret Pep 127.4 (0-900) pg/mL Urine Color (Yellow) Urine Turbidity (Clear) Urine pH (5.0-7.0) Ur Specific [place] (1.003-1.030) Urine Protein (Negative) mg/dL Urine Glucose (UA) (Negative) mg/dL Urine Ketones (Negative) mg/dL Urine Blood (Negative) Urine Nitrite (Negative) Urine Bilirubin (Negative) Urine Urobilinogen (<2.0) mg/dL Ur Leukocyte Esterase (Negative) Urine WBC (Auto) (0.0-6.0) /HPF Urine RBC (Auto) (0.0-6.0) /HPF Urine Bacteria (Auto) (Negative) /HPF 05/14/19 Range/Units 12:45 WBC (4.5-11.0) K/mm3 RBC (3.65-5.03) M/mm3 Hgb (11.8-15.2) gm/dl Hct (35.5-45.6) % MCV (84-94) fl MCH (28-32) pg MCHC (32-34) % RDW (13.2-15.2) % Plt Count (140-440) K/mm3 Lymph % (Auto) (13.4-35.0) % [place] % (Auto) (0.0-7.3) % Eos % (Auto) (0.0-4.3) % Baso % (Auto) (0.0-1.8) % Lymph # (1.2-5.4) K/mm3 [place] # (0.0-0.8) K/mm3 Eos # (0.0-0.4) K/mm3 Baso # (0.0-0.1) K/mm3 Seg Neutrophils % (40.0-70.0) % Seg Neutrophils # (1.8-7.7) K/mm3 Sodium (137-145) mmol/L Potassium (3.6-5.0) mmol/L Chloride (98-107) mmol/L Carbon Dioxide (22-30) mmol/L Anion Gap mmol/L BUN (9-20) mg/dL Creatinine (0.8-1.5) mg/dL Estimated GFR ml/min BUN/Creatinine Ratio % Glucose (75-100) mg/dL Calcium (8.4-10.2) mg/dL Troponin T (0.00-0.029) ng/mL NT-Pro-B Natriuret Pep (0-900) pg/mL Urine Color Yellow (Yellow) Urine Turbidity Slightly-cloudy (Clear) Urine pH 6.0 (5.0-7.0) Ur Specific [place] 1.010 (1.003-1.030) Urine Protein <15 mg/dl (Negative) mg/dL Urine Glucose (UA) Neg (Negative) mg/dL Urine Ketones Neg (Negative) mg/dL Urine Blood Sm (Negative) Urine Nitrite Neg (Negative) Urine Bilirubin Neg (Negative) Urine Urobilinogen < 2.0 (<2.0) mg/dL Ur Leukocyte Esterase Lg (Negative) Urine WBC (Auto) > 182.0 H (0.0-6.0) /HPF Urine RBC (Auto) 10.0 (0.0-6.0) /HPF Urine Bacteria (Auto) 1+ (Negative) /HPF - EKG Data EKG shows normal: sinus rhythm - EKG Data Interpretation: nonspecific ST-T wave erik - Radiology Data Radiology results: report reviewed CHEST 1 VIEW 05/14/2019 12:18 PM INDICATION / CLINICAL INFORMATION: chest pain. COMPARISON: 08/05/2015 FINDINGS: SUPPORT DEVICES: None. HEART / MEDIASTINUM: Normal heart size. Atherosclerosis in the thoracic aorta. LUNGS / PLEURA: No significant pulmonary or pleural abnormality. No pneumothorax. ADDITIONAL FINDINGS: No significant additional findings. IMPRESSION: 1. No acute findings. - Medical Decision Making 78-year-old male patient here today for urinary retention and lower abdominal pain. Patient has an indwelling catheter for BPH. Patient states he does follow with a nearby urologist. New catheter placed in his urine is draining without any issues. Patient also complained of chest tightness that resolved immediately after new cath was placed and urine was drained from bladder. He denies any further chest pain or shortness of breath. Troponin and EKG are without acute findings. Chest x-ray is WNL. Vitals are WNL. PVCs are normal. UA shows obvious UTI. Rocephin IV given. Mild hyponatremia [id number] mL saline bolus given. Patient denies any further abdominal pain. Will DC home on bed. Patient informed to follow-up with his urologist within 3-5 days. Also discussed strict return precautions in detail with patient who states understanding. Critical care attestation.: If time is entered above; I have spent that time in minutes in the direct care of this critically ill patient, excluding procedure time. ED Disposition Clinical Impression: Obstructed Noel catheter, Chest tightness UTI (urinary tract infection) Qualifiers: Urinary tract infection type: catheter-associated UTI Indwelling urinary catheter type: indwelling urethral catheter Encounter type: initial encounter Qualified Code(s): T83.511A - Infection and inflammatory reaction due to in dwelling urethral catheter, initial encounter Disposition: DC-01 TO HOME OR SELFCARE Is pt being admited?: No Does the pt Need Aspirin: No Condition: Stable Instructions: Urinary Tract Infection in Men (ED), Noel Catheter Placement and Care (ED) Additional Instructions: Please follow-up with your urologist within 3-5 days. Return to the emergency department if he developed any new or worsening symptoms Prescriptions: Nitrofurantoin [place]/M-Cryst [Macrobid CAP] 100 mg PO Q12HR 7 Days #14 capsule Referrals: PRIMARY CARE, [Primary Care Provider] - 3-5 Days
[2019-05-14] MEDS ORDERED: oxyCODONE /ACETAMINOPHEN 5-325MG TAB PO ONE (12:33)
--- NOTE | 2019-05-14 12:38 | XRay Report ---
CHEST 1 VIEW 05/14/2019 12:18 PM INDICATION / CLINICAL INFORMATION: chest pain. COMPARISON: 08/05/2015 FINDINGS: SUPPORT DEVICES: None. HEART / MEDIASTINUM: Normal heart size. Atherosclerosis in the thoracic aorta. LUNGS / PLEURA: No significant pulmonary or pleural abnormality. No pneumothorax. ADDITIONAL FINDINGS: No significant additional findings. IMPRESSION: 1. No acute findings. Signer Name: Guillaume Trujillo MD Signed: 05/14/2019 12:33 PM Workstation Name: [id number]
[2019-05-14 13:18] LABS: Basophils % (Auto) 0.2 % (0.0-1.8); Eosinophils # (Auto) 0.1 K/mm3 (0.0-0.4); Eosinophils % (Auto) 1.5 % (0.0-4.3); Hematocrit 36.4 % (35.5-45.6); Hemoglobin 12.6 gm/dl (11.8-15.2); Lymphocytes # (Auto) 1.2 K/mm3 (1.2-5.4); Lymphocytes % (Auto) 17.1 % (13.4-35.0); Mean Corpuscular HGB Conc 35 % (32-34); Mean Corpuscular Volume 97 fl (84-94); Monocytes # (Auto) 0.7 K/mm3 (0.0-0.8); Platelet Count 226 K/mm3 (140-440); Red Blood Count 3.76 M/mm3 (3.65-5.03); Red Cell Distribution Width 14.7 % (13.2-15.2)
[2019-05-14 13:22] LABS: BUN/Creatinine Ratio 18; Blood Urea Nitrogen 16 mg/dL (9-20); Calcium 9.6 mg/dL (8.4-10.2); Hemolysis Index 4
[2019-05-14 13:25] LABS: Bacteria,Urine 1+ /HPF (Negative); Bilirubin,Urine NEG (Negative); Blood,Urine SM (Negative); Color,Urine Yellow (Yellow); Protein,Urine <15 mg/dL mg/dL (Negative); Urobilinogen,Urine < 2.0 mg/dL (<2.0)
[2019-05-14 13:31] LABS: WBC,Urine > 182.0 /HPF (0.0-6.0)
[2019-05-14] MEDS ORDERED: cefTRIAXone/NS 1 GM/50 ML 1 GM/50 ML BAG IV ONE (14:17)
[2019-05-14] MEDS ORDERED: SODIUM CHLORIDE 0.9% 1000 ML 1,000 ML IV ONE (14:18)
[2019-05-14] MEDS ORDERED: SODIUM CHLORIDE 0.9% 500 ML 500 ML IV ONE (14:27)
[2019-05-14 16:39] VITALS: BP 121/61
== END 2019-05-14 16:39 | disposition home or self-care (01) ==
LOC: ED 11:08
DX: T83.511A Infection and inflammatory reaction due to indwelling urethral catheter, initial encounter (principal); R33.9 Retention of urine, unspecified; R07.89 Other chest pain; I11.0 Hypertensive heart disease with heart failure; I50.9 Heart failure, unspecified; E11.9 Type 2 diabetes mellitus without complications; M19.90 Unspecified osteoarthritis, unspecified site; J45.909 Unspecified asthma, uncomplicated; Z86.2 Personal history of diseases of the blood and blood-forming organs and certain disorders involving the immune mechanism; Z79.899 Other long term (current) drug therapy; Z98.890 Other specified postprocedural states; Z91.041 Radiographic dye allergy status; Z88.1 Allergy status to other antibiotic agents
CPT/HCPCS: 36415; 51702; 71045; 80048; 81001; 83880; 84484; 85025; 93005; 93010; 96365; 99285; J0696; J7040

== ENCOUNTER 2019-06-05 12:29 | Emergency (ER) | payer MEDICARE, OTHER ==
--- NOTE | 2019-06-05 13:24 | Emergency Department Report ---
ED General Adult HPI - General Chief complaint: Urogenital-Male Stated complaint: BLOOD IN URINE Time Seen by Provider: 06/05/19 13:10 Source: patient Mode of arrival: Stretcher Limitations: No Limitations - History of Present Illness Initial comments: This is a 78 year old male with a history of coronary artery disease, insulin- dependent diabetes, indwelling Noel and prostate cancer. He states that the last time his catheter was changed was 1 month ago. However the charge nurse states they changed yesterday at the [facility]. He is here today "for the same thing as last month" although last month he was here for chest pain. He states that he has had bright red blood from his Noel catheter. He states that that is improved and his catheter is draining and much less bloody. He is concerned because he has a history of anemia. However his last hemoglobin was nearly 12. He denies fever or chills. He does not complain of any acute pain. He does not complain of any acute trauma to his genital area. -: Gradual, hour(s) Severity scale (0 -10): 0 Associated Symptoms: denies other symptoms - Related Data Home Medications Medication Instructions Recorded Confirmed Last Taken Insulin Aspart Prot/Aspart(Nf) 12 unit SQ QPM 04/02/13 04/06/19 04/05/19 [NovoLOG Mix 70/30 VIAL] Insulin Aspart Prot/Aspart(Nf) 30 unit SQ QAM 04/02/13 04/06/19 04/05/19 [NovoLOG Mix 70/30 VIAL] Metformin HCl [metFORMIN ER] 500 mg PO BID 04/02/13 04/06/19 04/05/19 carvediloL [Coreg] 25 mg PO BID 04/02/13 04/06/19 04/05/19 lisinopriL [Zestril TAB] 40 mg PO QDAY 04/02/13 04/06/19 04/05/19 Cholecalciferol (Vitamin D3) 1,000 units PO DAILY 05/31/15 04/06/19 04/05/19 [Vitamin D3 2,000 UNIT CAP] Oxybutynin [Ditropan] 1 tab PO DAILY 05/31/15 04/06/19 04/05/19 Vitamin E 1,000 unit PO DAILY 05/31/15 04/06/19 04/05/19 Acetaminophen with Codeine 1 each PO Q6HR PRN 08/05/15 04/06/19 04/05/19 [Acetaminophen-Codeine #2 TAB] B Cmplx 4/Vit D3/C/Folic/Zinc 1 each PO QDAY 08/05/15 04/06/19 04/05/19 [Vital-D Rx Tablet] Finasteride [Proscar] 5 mg PO QDAY 08/05/15 04/06/19 04/05/19 Omeprazole [PriLOSEC] 40 mg PO QDAY 08/05/15 04/06/19 04/05/19 Previous Rx's Medication Instructions Recorded Last Taken Type Aspirin EC [Halfprin EC] 81 mg PO QDAY #30 tablet.dr 06/03/15 04/05/19 Rx ISOSORBIDE MONOnitrate [Imdur ER] 30 mg PO DAILY #30 tab.er.24h 06/03/15 04/05/19 Rx amLODIPine 10 mg PO QDAY #30 tablet 06/03/15 04/05/19 Rx Codeine Phosphate/Guaifenesin 10 ml PO Q6H PRN #1 bottle 04/08/19 Unknown Rx [Guaifenesin-Codeine Syrup] cefUROXime [Ceftin] 250 mg PO Q12H #12 tablet 04/08/19 Unknown Rx Nitrofurantoin [place]/M-Cryst 100 mg PO Q12HR 7 Days #14 capsule 06/05/19 Unknown Rx [Macrobid CAP] Allergies Allergy/AdvReac Type Severity Reaction Status Date / Time diphenhydramine HCl Allergy Rash Verified 05/31/15 18:24 [From Benadryl] Iodinated Contrast Media Allergy Rash Verified 05/31/15 18:24 [Iodinated Contrast Media - IV Dye] ED Review of Systems ROS: Stated complaint: BLOOD IN URINE Other details as noted in HPI Constitutional: denies: chills, fever Eyes: denies: eye pain, eye discharge, vision change ENT: denies: ear pain, throat pain Respiratory: denies: cough, shortness of breath, wheezing Cardiovascular: denies: chest pain, palpitations Endocrine: no symptoms reported Gastrointestinal: denies: abdominal pain, nausea, diarrhea Genitourinary: as per HPI, hematuria Musculoskeletal: denies: back pain, joint swelling, arthralgia Skin: denies: rash, lesions Neurological: denies: headache, weakness, paresthesias Psychiatric: denies: anxiety, depression Hematological/Lymphatic: denies: easy bleeding, easy bruising ED Past Medical Hx - Past Medical History Previous Medical History?: Yes Hx Hypertension: Yes Hx Heart Attack/AMI: No Hx Congestive Heart Failure: No Hx Diabetes: Yes Hx Deep Vein Thrombosis: No Hx Pulmonary Embolism: No Hx GERD: Yes Hx Liver Disease: No Hx Arthritis: Yes Hx Psychiatric Treatment: Yes (schizophrenia) Hx Asthma: Yes Hx COPD: Yes Hx Tuberculosis: No Additional medical history: hyperlipidemia, malignant neoplasm of prostate, benign prostatic hyperplasia and anemia - Surgical History Past Surgical History?: No Hx Coronary Stent: No Hx Pacemaker: No Hx Internal Defibrillator: No Additional Surgical History: cataract surgery both eyes, hemorrhoidectomy - Social History Smoking Status: Never Smoker Substance Use Type: None - Medications Home Medications: Home Medications Medication Instructions Recorded Confirmed Last Taken Type Insulin Aspart Prot/Aspart(Nf) 12 unit SQ QPM 04/02/13 04/06/19 04/05/19 History [NovoLOG Mix 70/30 VIAL] Insulin Aspart Prot/Aspart(Nf) 30 unit SQ QAM 04/02/13 04/06/19 04/05/19 History [NovoLOG Mix 70/30 VIAL] Metformin HCl [metFORMIN ER] 500 mg PO BID 04/02/13 04/06/19 04/05/19 History carvediloL [Coreg] 25 mg PO BID 04/02/13 04/06/19 04/05/19 History lisinopriL [Zestril TAB] 40 mg PO QDAY 04/02/13 04/06/19 04/05/19 History Cholecalciferol (Vitamin D3) 1,000 units PO DAILY 05/31/15 04/06/19 04/05/19 History [Vitamin D3 2,000 UNIT CAP] Oxybutynin [Ditropan] 1 tab PO DAILY 05/31/15 04/06/19 04/05/19 History Vitamin E 1,000 unit PO DAILY 05/31/15 04/06/19 04/05/19 History Aspirin EC [Halfprin EC] 81 mg PO QDAY #30 tablet.dr 06/03/15 04/06/19 04/05/19 Rx ISOSORBIDE MONOnitrate [Imdur ER] 30 mg PO DAILY #30 tab.er.24h 06/03/15 04/06/19 04/05/19 Rx amLODIPine 10 mg PO QDAY #30 tablet 06/03/15 04/06/19 04/05/19 Rx Acetaminophen with Codeine 1 each PO Q6HR PRN 08/05/15 04/06/19 04/05/19 History [Acetaminophen-Codeine #2 TAB] B Cmplx 4/Vit D3/C/Folic/Zinc 1 each PO QDAY 08/05/15 04/06/19 04/05/19 History [Vital-D Rx Tablet] Finasteride [Proscar] 5 mg PO QDAY 08/05/15 04/06/19 04/05/19 History Omeprazole [PriLOSEC] 40 mg PO QDAY 08/05/15 04/06/19 04/05/19 History Codeine Phosphate/Guaifenesin 10 ml PO Q6H PRN #1 bottle 04/08/19 Unknown Rx [Guaifenesin-Codeine Syrup] cefUROXime [Ceftin] 250 mg PO Q12H #12 tablet 04/08/19 Unknown Rx Nitrofurantoin [place]/M-Cryst 100 mg PO Q12HR 7 Days #14 capsule 06/05/19 Unknown Rx [Macrobid CAP] ED Physical Exam - General Limitations: No Limitations General appearance: alert, in no apparent distress - Head Head exam: Present: atraumatic, normocephalic - Eye Eye exam: Present: normal appearance. Absent: scleral icterus - ENT ENT exam: Present: mucous membranes moist - Neck Neck exam: Present: normal inspection - Respiratory Respiratory exam: Present: normal lung sounds bilaterally. Absent: respiratory distress - Cardiovascular Cardiovascular Exam: Present: regular rate, normal rhythm. Absent: systolic m urmur, diastolic murmur, rubs, gallop - GI/Abdominal GI/Abdominal exam: Present: soft, normal bowel sounds. Absent: distended, tenderness, guarding, rebound - Rectal Rectal exam: Present: deferred - exam: Present: other (uncircumcised, no urethral bleeding, indwelling Noel, catheter is draining dark yellow urine) - Extremities Exam Extremities exam: Present: normal inspection - Back Exam Back exam: Present: normal inspection - Neurological Exam Neurological exam: Present: alert, oriented X3 - Psychiatric Psychiatric exam: Present: normal affect, normal mood - Skin Skin exam: Present: warm, dry, intact, normal color. Absent: rash ED Course Vital Signs 06/05/19 06/05/19 06/05/19 12:47 13:00 13:15 Temperature 98.4 F Pulse Rate 81 83 Respiratory 22 15 Rate Blood Pressure 167/96 164/94 Blood Pressure 149/75 [Right] O2 Sat by Pulse 96 94 96 Oximetry 06/05/19 06/05/19 13:30 13:46 Temperature Pulse Rate 81 80 Respiratory 22 13 Rate Blood Pressure 164/94 131/72 Blood Pressure [Right] O2 Sat by Pulse 95 99 Oximetry ED Medical Decision Making - Lab Data Result diagrams: 06/05/19 13:15 06/05/19 13:15 Laboratory Results - last 24 hr 06/05/19 06/05/19 06/05/19 13:15 13:15 13:15 WBC 5.2 RBC 3.83 Hgb 12.8 Hct 37.2 MCV 97 H MCH 33 H MCHC 34 RDW 14.3 Plt Count 259 Lymph % (Auto) 20.3 [place] % (Auto) 12.6 H Eos % (Auto) 2.9 Baso % (Auto) 0.3 Lymph # 1.1 L [place] # 0.7 Eos # 0.1 Baso # 0.0 Seg Neutrophils % 63.9 Seg Neutrophils # 3.3 PT 12.0 L INR 0.88 APTT 32.5 Sodium 132 L Potassium 4.1 Chloride 90.5 L Carbon Dioxide 26 Anion Gap 20 BUN 14 Creatinine 0.7 L Estimated GFR > 60 BUN/Creatinine Ratio 20 Glucose 133 H Calcium 9.6 Total Bilirubin 0.20 Direct Bilirubin < 0.2 Indirect Bilirubin 0.0 AST 12 ALT 16 Alkaline Phosphatase 61 Total Protein 6.9 Albumin 3.8 L Albumin/Globulin Ratio 1.2 Urine Color Urine Turbidity Urine pH Ur Specific [place] Urine Protein Urine Glucose (UA) Urine Ketones Urine Blood Urine Nitrite Urine Bilirubin Urine Urobilinogen Ur Leukocyte Esterase Urine WBC (Auto) Urine RBC (Auto) Blood Type Antibody Screen 06/05/19 06/05/19 13:15 13:29 WBC RBC Hgb Hct MCV MCH MCHC RDW Plt Count Lymph % (Auto) [place] % (Auto) Eos % (Auto) Baso % (Auto) Lymph # [place] # Eos # Baso # Seg Neutrophils % Seg Neutrophils # PT INR APTT Sodium Potassium Chloride Carbon Dioxide Anion Gap BUN Creatinine Estimated GFR BUN/Creatinine Ratio Glucose Calcium Total Bilirubin Direct Bilirubin Indirect Bilirubin AST ALT Alkaline Phosphatase Total Protein Albumin Albumin/Globulin Ratio Urine Color Red Urine Turbidity Slightly-cloudy Urine pH 7.0 Ur Specific [place] 1.005 Urine Protein <15 mg/dl Urine Glucose (UA) Neg Urine Ketones Neg Urine Blood Lg Urine Nitrite Neg Urine Bilirubin Neg Urine Urobilinogen < 2.0 Ur Leukocyte Esterase Mod Urine WBC (Auto) 10.0 H Urine RBC (Auto) > 182.0 Blood Type A POSITIVE Antibody Screen Negative Critical care attestation.: If time is entered above; I have spent that time in minutes in the direct care of this critically ill patient, excluding procedure time. ED Disposition Clinical Impression: Prostate CA Hematuria Qualifiers: Hematuria type: gross Qualified Code(s): R31.0 - Gross hematuria Disposition: TO HOME OR SELFCARE Is pt being admited?: No Does the pt Need Aspirin: No Condition: Stable Instructions: Acute Hematuria (ED) Additional Instructions: Increase fluids. Follow up with urologist. Rx Macrobid Prescriptions: Nitrofurantoin [place]/M-Cryst [Macrobid CAP] 100 mg PO Q12HR 7 Days #14 capsule Referrals: PRIMARY CARE, [Primary Care Provider] - 3-5 Days Time of Disposition: 14:33
[2019-06-05 13:36] LABS: Basophils % (Auto) 0.3 % (0.0-1.8); Eosinophils # (Auto) 0.1 K/mm3 (0.0-0.4); Eosinophils % (Auto) 2.9 % (0.0-4.3); Hematocrit 37.2 % (35.5-45.6); Hemoglobin 12.8 gm/dl (11.8-15.2); Lymphocytes # (Auto) 1.1 K/mm3 (1.2-5.4); Lymphocytes % (Auto) 20.3 % (13.4-35.0); Mean Corpuscular HGB Conc 34 % (32-34); Mean Corpuscular Volume 97 fl (84-94); Monocytes # (Auto) 0.7 K/mm3 (0.0-0.8); Monocytes % (Auto) 12.6 % (0.0-7.3); Platelet Count 259 K/mm3 (140-440); Red Blood Count 3.83 M/mm3 (3.65-5.03); Red Cell Distribution Width 14.3 % (13.2-15.2)
[2019-06-05 13:47] LABS: INR 0.88 (0.87-1.13); Partial Thromboplastin Time 32.5 Sec. (24.2-36.6)
[2019-06-05 13:48] LABS: Bilirubin,Urine NEG (Negative); Blood,Urine LG (Negative); Color,Urine Red (Yellow); Protein,Urine <15 mg/dL mg/dL (Negative); RBC,Urine > 182.0 /HPF (0.0-6.0); Urobilinogen,Urine < 2.0 mg/dL (<2.0)
[2019-06-05 14:09] LABS: Alanine Aminotransferase 16 units/L (7-56); Albumin 3.8 g/dL (3.9-5); BUN/Creatinine Ratio 20; Blood Urea Nitrogen 14 mg/dL (9-20); Calcium 9.6 mg/dL (8.4-10.2); Hemolysis Index 2
[2019-06-05 14:26] LABS: Bilirubin,Direct < 0.2 mg/dL (0-0.2)
[2019-06-05 15:53] VITALS: BP 126/81
== END 2019-06-05 15:50 | disposition home or self-care (01) ==
LOC: ED 12:29
DX: C61 Malignant neoplasm of prostate (principal); R31.9 Hematuria, unspecified; I10 Essential (primary) hypertension; E11.9 Type 2 diabetes mellitus without complications; K21.9 Gastro-esophageal reflux disease without esophagitis; M19.90 Unspecified osteoarthritis, unspecified site; J45.909 Unspecified asthma, uncomplicated; F20.9 Schizophrenia, unspecified; Z98.890 Other specified postprocedural states; Z79.899 Other long term (current) drug therapy; Z88.8 Allergy status to other drugs, medicaments and biological substances
CPT/HCPCS: 36415; 80048; 80076; 81001; 85025; 85610; 85730; 86850; 86900; 86901; 87086

== ENCOUNTER 2019-07-04 07:20 | Emergency (ER) | payer OTHER ==
[2019-07-04 07:43] VITALS: BP 162/94
[2019-07-04] MEDS ORDERED: HYDROcodone/ACETAMINOPHEN 5-325 MG TAB PO ONE (09:29)
[2019-07-04 09:40] LABS: Bacteria,Urine 1+ /HPF (Negative); Bilirubin,Urine NEG (Negative); Blood,Urine MOD (Negative); Color,Urine Yellow (Yellow); Mucus,Urine FEW /HPF; Triple Phosphate Crystal,Urine FEW; Urobilinogen,Urine < 2.0 mg/dL (<2.0)
[2019-07-04 09:50] LABS: Basophils % (Auto) 0.2 % (0.0-1.8); Eosinophils # (Auto) 0.1 K/mm3 (0.0-0.4); Eosinophils % (Auto) 1.4 % (0.0-4.3); Hematocrit 37.7 % (35.5-45.6); Hemoglobin 12.7 gm/dl (11.8-15.2); Lymphocytes # (Auto) 0.9 K/mm3 (1.2-5.4); Mean Corpuscular HGB Conc 34 % (32-34); Mean Corpuscular Volume 97 fl (84-94); Monocytes # (Auto) 0.9 K/mm3 (0.0-0.8); Monocytes % (Auto) 11.1 % (0.0-7.3); Platelet Count 290 K/mm3 (140-440); Red Blood Count 3.87 M/mm3 (3.65-5.03); Red Cell Distribution Width 14.4 % (13.2-15.2)
[2019-07-04 09:55] LABS: WBC,Urine > 182.0 /HPF (0.0-6.0)
[2019-07-04] MEDS ORDERED: LIDOCAINE-MPF (1%) 10 MG/1 ML VIAL 5 ML INFILTRATI ONE (10:01)
[2019-07-04 10:02] LABS: BUN/Creatinine Ratio 16; Blood Urea Nitrogen 11 mg/dL (9-20); Calcium 9.6 mg/dL (8.4-10.2); Hemolysis Index 2
--- NOTE | 2019-07-04 10:58 | Emergency Department Report ---
ED Male HPI - General Chief complaint: Abdominal Pain Stated complaint: GROIN PAIN Time Seen by Provider: 07/04/19 09:10 Source: patient, EMS Mode of arrival: Stretcher Limitations: No Limitations - History of Present Illness Initial comments: 78-year-old male with past medical history of multiple medical problems including prostate cancer, chronic indwelling Orellana secondary to chronic urinary retention for the Hospital with complaints of decreased output from Orellana catheter and progressively worsening lower abdominal pain. Upon waking up this morning patient noticed that he had decreased drainage into his Orellana catheter bag compared to his baseline. He also developed suprapubic abdominal pain as moderate to severe intensity upon arrival. Patient states he's had persistent penile pain that radiates to the rectum since his catheter was placed by his urologist Dr. Victor 2 weeks ago. No reports of fever, nausea, or vomiting. He is currently undergoing every 3 months chemotherapy injections and oral pills for his prostate cancer treatment. - Related Data Home Medications Medication Instructions Recorded Confirmed Last Taken Insulin Aspart Prot/Aspart(Nf) 12 unit SQ QPM 04/02/13 04/06/19 04/05/19 [NovoLOG Mix 70/30 VIAL] Insulin Aspart Prot/Aspart(Nf) 30 unit SQ QAM 04/02/13 04/06/19 04/05/19 [NovoLOG Mix 70/30 VIAL] Metformin HCl [metFORMIN ER] 500 mg PO BID 04/02/13 04/06/19 04/05/19 carvediloL [Coreg] 25 mg PO BID 04/02/13 04/06/19 04/05/19 lisinopriL [Zestril TAB] 40 mg PO QDAY 04/02/13 04/06/19 04/05/19 Cholecalciferol (Vitamin D3) 1,000 units PO DAILY 05/31/15 04/06/19 04/05/19 [Vitamin D3 2,000 UNIT CAP] Oxybutynin [Ditropan] 1 tab PO DAILY 05/31/15 04/06/19 04/05/19 Vitamin E 1,000 unit PO DAILY 05/31/15 04/06/19 04/05/19 Acetaminophen with Codeine 1 each PO Q6HR PRN 08/05/15 04/06/19 04/05/19 [Acetaminophen-Codeine #2 TAB] B Cmplx 4/Vit D3/C/Folic/Zinc 1 each PO QDAY 08/05/15 04/06/19 04/05/19 [Vital-D Rx Tablet] Finasteride [Proscar] 5 mg PO QDAY 08/05/15 04/06/19 04/05/19 Omeprazole [PriLOSEC] 40 mg PO QDAY 08/05/15 04/06/19 04/05/19 Previous Rx's Medication Instructions Recorded Last Taken Type Aspirin EC [Halfprin EC] 81 mg PO QDAY #30 tablet.dr 06/03/15 04/05/19 Rx ISOSORBIDE MONOnitrate [Imdur ER] 30 mg PO DAILY #30 tab.er.24h 06/03/15 04/05/19 Rx amLODIPine 10 mg PO QDAY #30 tablet 06/03/15 04/05/19 Rx Codeine Phosphate/Guaifenesin 10 ml PO Q6H PRN #1 bottle 04/08/19 Unknown Rx [Guaifenesin-Codeine Syrup] cefUROXime [Ceftin] 250 mg PO Q12H #12 tablet 04/08/19 Unknown Rx Nitrofurantoin [place]/M-Cryst 100 mg PO Q12HR 7 Days #14 capsule 06/05/19 Unknown Rx [Macrobid CAP] HYDROcodone/APAP 5-325 [[place] 1 each PO Q6HR PRN #10 tablet 07/04/19 Unknown Rx 5/325] cephALEXin [Keflex] 500 mg PO Q6HR #28 capsule 07/04/19 Unknown Rx Allergies Allergy/AdvReac Type Severity Reaction Status Date / Time diphenhydramine HCl Allergy Rash Verified 05/31/15 18:24 [From Benadryl] Iodinated Contrast Media Allergy Rash Verified 05/31/15 18:24 [Iodinated Contrast Media - IV Dye] ED Review of Systems ROS: Stated complaint: GROIN PAIN Other details as noted in HPI Comment: All other systems reviewed and negative ED Past Medical Hx - Past Medical History Hx Hypertension: Yes Hx Heart Attack/AMI: No Hx Congestive Heart Failure: No Hx Diabetes: Yes Hx Deep Vein Thrombosis: No Hx Pulmonary Embolism: No Hx GERD: Yes Hx Liver Disease: No Hx Arthritis: Yes Hx Psychiatric Treatment: Yes (schizophrenia) Hx Asthma: Yes Hx COPD: Yes Hx Tuberculosis: No Additional medical history: hyperlipidemia, malignant neoplasm of prostate, benign prostatic hyperplasia and anemia - Surgical History Hx Coronary Stent: No Hx Pacemaker: No Hx Internal Defibrillator: No Additional Surgical History: cataract surgery both eyes, hemorrhoidectomy - Social History Smoking Status: Never Smoker Substance Use Type: None - Medications Home Medications: Home Medications Medication Instructions Recorded Confirmed Last Taken Type Insulin Aspart Prot/Aspart(Nf) 12 unit SQ QPM 04/02/13 04/06/19 04/05/19 History [NovoLOG Mix 70/30 VIAL] Insulin Aspart Prot/Aspart(Nf) 30 unit SQ QAM 04/02/13 04/06/19 04/05/19 History [NovoLOG Mix 70/30 VIAL] Metformin HCl [metFORMIN ER] 500 mg PO BID 04/02/13 04/06/19 04/05/19 History carvediloL [Coreg] 25 mg PO BID 04/02/13 04/06/19 04/05/19 History lisinopriL [Zestril TAB] 40 mg PO QDAY 04/02/13 04/06/19 04/05/19 History Cholecalciferol (Vitamin D3) 1,000 units PO DAILY 05/31/15 04/06/19 04/05/19 History [Vitamin D3 2,000 UNIT CAP] Oxybutynin [Ditropan] 1 tab PO DAILY 05/31/15 04/06/19 04/05/19 History Vitamin E 1,000 unit PO DAILY 05/31/15 04/06/19 04/05/19 History Aspirin EC [Halfprin EC] 81 mg PO QDAY #30 tablet.dr 06/03/15 04/06/19 04/05/19 Rx ISOSORBIDE MONOnitrate [Imdur ER] 30 mg PO DAILY #30 tab.er.24h 06/03/15 04/06/19 04/05/19 Rx amLODIPine 10 mg PO QDAY #30 tablet 06/03/15 04/06/19 04/05/19 Rx Acetaminophen with Codeine 1 each PO Q6HR PRN 08/05/15 04/06/19 04/05/19 History [Acetaminophen-Codeine #2 TAB] B Cmplx 4/Vit D3/C/Folic/Zinc 1 each PO QDAY 08/05/15 04/06/19 04/05/19 History [Vital-D Rx Tablet] Finasteride [Proscar] 5 mg PO QDAY 08/05/15 04/06/19 04/05/19 History Omeprazole [PriLOSEC] 40 mg PO QDAY 08/05/15 04/06/19 04/05/19 History Codeine Phosphate/Guaifenesin 10 ml PO Q6H PRN #1 bottle 04/08/19 Unknown Rx [Guaifenesin-Codeine Syrup] cefUROXime [Ceftin] 250 mg PO Q12H #12 tablet 04/08/19 Unknown Rx Nitrofurantoin [place]/M-Cryst 100 mg PO Q12HR 7 Days #14 capsule 06/05/19 Unknown Rx [Macrobid CAP] HYDROcodone/APAP 5-325 [[place] 1 each PO Q6HR PRN #10 tablet 07/04/19 Unknown Rx 5/325] cephALEXin [Keflex] 500 mg PO Q6HR #28 capsule 07/04/19 Unknown Rx ED Physical Exam - General Limitations: No Limitations - Other Other exam information: examined after orellana placement General: No limitations, patient is alert in no acute distress Head exam: Atraumatic, normocephalic Eyes exam: Normal appearance ENT: Moist mucous membrane Neck exam: Normal inspection Respiratory exam: Clear to auscultation bilateral, no wheezes, rales, crackles Cardiovascular: Normal rate and rhythm Abdomen: Soft, nondistended, and nontender, with normal bowel sounds, no rebound, or guarding : No testicular swelling or tenderness. Indwelling Orellana in place. No gross penile abnormality Extremity: Full range of motion normal inspection no deformity Back: Normal Inspection Neurologic: Alert, oriented x3 Psychiatric: normal affect, normal mood Skin: Warm, dry, intact ED Course Vital Signs 07/04/19 07/04/19 07:40 07:42 Temperature 97.6 F Pulse Rate 103 H Blood Pressure 162/94 O2 Sat by Pulse 99 Oximetry ED Medical Decision Making - Lab Data Result diagrams: 07/04/19 09:34 07/04/19 09:34 Lab Results 07/04/19 07/04/19 07/04/19 Range/Units 09:14 09:34 09:34 WBC 8.3 (4.5-11.0) K/mm3 RBC 3.87 (3.65-5.03) M/mm3 Hgb 12.7 (11.8-15.2) gm/dl Hct 37.7 (35.5-45.6) % MCV 97 H (84-94) fl MCH 33 H (28-32) pg MCHC 34 (32-34) % RDW 14.4 (13.2-15.2) % Plt Count 290 (140-440) K/mm3 Lymph % (Auto) 11.0 L (13.4-35.0) % [place] % (Auto) 11.1 H (0.0-7.3) % Eos % (Auto) 1.4 (0.0-4.3) % Baso % (Auto) 0.2 (0.0-1.8) % Lymph # 0.9 L (1.2-5.4) K/mm3 [place] # 0.9 H (0.0-0.8) K/mm3 Eos # 0.1 (0.0-0.4) K/mm3 Baso # 0.0 (0.0-0.1) K/mm3 Seg Neutrophils % 76.3 H (40.0-70.0) % Seg Neutrophils # 6.4 (1.8-7.7) K/mm3 Sodium 130 L (137-145) mmol/L Potassium 4.4 (3.6-5.0) mmol/L Chloride 91.0 L (98-107) mmol/L Carbon Dioxide 25 (22-30) mmol/L Anion Gap 18 mmol/L BUN 11 (9-20) mg/dL Creatinine 0.7 L (0.8-1.5) mg/dL Estimated GFR > 60 ml/min BUN/Creatinine Ratio 16 % Glucose 155 H (75-100) mg/dL Calcium 9.6 (8.4-10.2) mg/dL Urine Color Yellow (Yellow) Urine Turbidity Cloudy (Clear) Urine pH 8.0 H (5.0-7.0) Ur Specific [place] 1.015 (1.003-1.030) Urine Protein 30 mg/dl (Negative) mg/dL Urine Glucose (UA) Neg (Negative) mg/dL Urine Ketones Neg (Negative) mg/dL Urine Blood Mod (Negative) Urine Nitrite Neg (Negative) Urine Bilirubin Neg (Negative) Urine Urobilinogen < 2.0 (<2.0) mg/dL Ur Leukocyte Esterase Lg (Negative) Urine WBC (Auto) > 182.0 H (0.0-6.0) /HPF Urine RBC (Auto) 134.0 (0.0-6.0) /HPF Urine Bacteria (Auto) 1+ (Negative) /HPF Urine WBC Clumps Few /HPF Triple Phos Crystals Few Urine Mucus Few /HPF - Medical Decision Making Patient presented with urinary retention secondary to obstructed catheter. Positive UTI without sepsis. IM Rocephin provided. Ongoing pain. [place] provided. As reviewed. Normal renal function. Chronic unchanged mild hyponatremia. Pt will be discharged with antibiotics and urology follow-up. - Differential Diagnosis uti, obstructed cath Critical Care Time: No Critical care attestation.: If time is entered above; I have spent that time in minutes in the direct care of this critically ill patient, excluding procedure time. ED Disposition Clinical Impression: UTI (urinary tract infection), Obstructed Orellana catheter, Encounter for Orellana catheter replacement Disposition: TO HOME OR SELFCARE Is pt being admited?: No Does the pt Need Aspirin: No Condition: Stable Instructions: Urinary Tract Infection in Men (ED), Orellana Catheter Placement and Care (ED) Additional Instructions: Take the medication as prescribed. Follow-up with your doctor or with the doctor provided. Return is symptoms worsen as indicated by your discharge instructions. Prescriptions: cephALEXin [Keflex] 500 mg PO Q6HR #28 capsule HYDROcodone/APAP 5-325 [[place] 5/325] 1 each PO Q6HR PRN #10 tablet PRN Reason: Pain Referrals: PRIMARY CARE, [Primary Care Provider] - 3-5 Days DOUGLAS VICTOR MD [Staff Physician] - 3-5 Days Time of Disposition: 11:00
== END 2019-07-04 12:50 | disposition home or self-care (01) ==
LOC: ED 07:20
DX: N39.0 Urinary tract infection, site not specified (principal); T83.098A Other mechanical complication of other urinary catheter, initial encounter; I10 Essential (primary) hypertension; E11.9 Type 2 diabetes mellitus without complications; K21.9 Gastro-esophageal reflux disease without esophagitis; M19.90 Unspecified osteoarthritis, unspecified site; F20.89 Other schizophrenia; J44.9 Chronic obstructive pulmonary disease, unspecified; Z86.2 Personal history of diseases of the blood and blood-forming organs and certain disorders involving the immune mechanism; Z98.890 Other specified postprocedural states; Z79.899 Other long term (current) drug therapy; Z88.2 Allergy status to sulfonamides; Z91.041 Radiographic dye allergy status
CPT/HCPCS: 36415; 51702; 80048; 81001; 85025; 96372; 99283; J0696

== ENCOUNTER 2019-07-25 02:03 | Emergency (ER) | payer OTHER ==
[2019-07-25 02:38] VITALS: BP 121/50
[2019-07-25] MEDS ORDERED: traMADol 50 MG TAB PO ONE (02:46)
--- NOTE | 2019-07-25 02:59 | Emergency Department Report ---
ED Male HPI - General Chief complaint: Abdominal Pain Stated complaint: BLOCKAGE IN URINARY CATHETER Time Seen by Provider: 07/25/19 02:22 Source: patient Mode of arrival: Ambulatory Limitations: Physical Limitation - History of Present Illness Initial comments: Patient is a 79-year-old -[place] male who has had urinary retention treated with a Noel catheter for the last several months. Patient has his catheter is changed monthly. Patient's current Was been present for approximately 2 weeks. Patient states over the last several hours he's had no output and is has suprapubic discomfort and pressure. States the pain is 10 out of 10. He denies any back pain nausea vomiting fevers chills at this time. - Related Data Home Medications Medication Instructions Recorded Confirmed Last Taken Insulin Aspart Prot/Aspart(Nf) 12 unit SQ QPM 04/02/13 04/06/19 04/05/19 [NovoLOG Mix 70/30 VIAL] Insulin Aspart Prot/Aspart(Nf) 30 unit SQ QAM 04/02/13 04/06/19 04/05/19 [NovoLOG Mix 70/30 VIAL] Metformin HCl [metFORMIN ER] 500 mg PO BID 04/02/13 04/06/19 04/05/19 carvediloL [Coreg] 25 mg PO BID 04/02/13 04/06/19 04/05/19 lisinopriL [Zestril TAB] 40 mg PO QDAY 04/02/13 04/06/19 04/05/19 Cholecalciferol (Vitamin D3) 1,000 units PO DAILY 05/31/15 04/06/19 04/05/19 [Vitamin D3 2,000 UNIT CAP] Oxybutynin [Ditropan] 1 tab PO DAILY 05/31/15 04/06/19 04/05/19 Vitamin E 1,000 unit PO DAILY 05/31/15 04/06/19 04/05/19 Acetaminophen with Codeine 1 each PO Q6HR PRN 08/05/15 04/06/19 04/05/19 [Acetaminophen-Codeine #2 TAB] B Cmplx 4/Vit D3/C/Folic/Zinc 1 each PO QDAY 08/05/15 04/06/19 04/05/19 [Vital-D Rx Tablet] Finasteride [Proscar] 5 mg PO QDAY 08/05/15 04/06/1919 Omeprazole [PriLOSEC] 40 mg PO QDAY 08/05/15 04/06/19 04/05/19 Previous Rx's Medication Instructions Recorded Last Taken Type Aspirin EC [Halfprin EC] 81 mg PO QDAY #30 tablet.dr 06/03/15 04/05/19 Rx ISOSORBIDE MONOnitrate [Imdur ER] 30 mg PO DAILY #30 tab.er.24h 06/03/15 04/05/19 Rx amLODIPine 10 mg PO QDAY #30 tablet 06/03/15 04/05/19 Rx Codeine Phosphate/Guaifenesin 10 ml PO Q6H PRN #1 bottle 04/08/19 Unknown Rx [Guaifenesin-Codeine Syrup] cefUROXime [Ceftin] 250 mg PO Q12H #12 tablet 04/08/19 Unknown Rx Nitrofurantoin [place]/M-Cryst 100 mg PO Q12HR 7 Days #14 capsule 06/05/19 Unknown Rx [Macrobid CAP] HYDROcodone/APAP 5-325 [[place] 1 each PO Q6HR PRN #10 tablet 07/04/19 Unknown Rx 5/325] cephALEXin [Keflex] 500 mg PO Q6HR #28 capsule 07/04/19 Unknown Rx Ciprofloxacin HCl [Ciprofloxacin 500 mg PO Q12HR #14 tab 07/25/19 Unknown Rx TAB] Phenazopyridine [Pyridium] 200 mg PO BID #6 tab 07/25/19 Unknown Rx traMADoL [Ultram] 50 mg PO Q6HR PRN #12 tablet 07/25/19 Unknown Rx Allergies Allergy/AdvReac Type Severity Reaction Status Date / Time diphenhydramine HCl Allergy Rash Verified 05/31/15 18:24 [From Benadryl] Iodinated Contrast Media Allergy Rash Verified 05/31/15 18:24 [Iodinated Contrast Media - IV Dye] ED Review of Systems ROS: Stated complaint: BLOCKAGE IN URINARY CATHETER Other details as noted in HPI Comment: All other systems reviewed and negative ED Past Medical Hx - Past Medical History Previous Medical History?: Yes Hx Hypertension: Yes Hx Heart Attack/AMI: No Hx Congestive Heart Failure: No Hx Diabetes: Yes Hx Deep Vein Thrombosis: No Hx Pulmonary Embolism: No Hx GERD: Yes Hx Liver Disease: No Hx Arthritis: Yes Hx Psychiatric Treatment: Yes (schizophrenia) Hx Asthma: Yes Hx COPD: Yes Hx Tuberculosis: No Additional medical history: hyperlipidemia, malignant neoplasm of prostate, benign prostatic hyperplasia and anemia - Surgical History Past Surgical History?: Yes Hx Coronary Stent: No Hx Pacemaker: No Hx Internal Defibrillator: No Additional Surgical History: cataract surgery both eyes, hemorrhoidectomy - Social History Smoking Status: Never Smoker Substance Use Type: None - Medications Home Medications: Home Medications Medication Instructions Recorded Confirmed Last Taken Type Insulin Aspart Prot/Aspart(Nf) 12 unit SQ QPM 04/02/13 04/06/19 04/05/19 History [NovoLOG Mix 70/30 VIAL] Insulin Aspart Prot/Aspart(Nf) 30 unit SQ QAM 04/02/13 04/06/19 04/05/19 History [NovoLOG Mix 70/30 VIAL] Metformin HCl [metFORMIN ER] 500 mg PO BID 04/02/13 04/06/19 04/05/19 History carvediloL [Coreg] 25 mg PO BID 04/02/13 04/06/19 04/05/19 History lisinopriL [Zestril TAB] 40 mg PO QDAY 04/02/13 04/06/19 04/05/19 History Cholecalciferol (Vitamin D3) 1,000 units PO DAILY 05/31/15 04/06/19 04/05/19 History [Vitamin D3 2,000 UNIT CAP] Oxybutynin [Ditropan] 1 tab PO DAILY 05/31/15 04/06/19 04/05/19 History Vitamin E 1,000 unit PO DAILY 05/31/15 04/06/19 04/05/19 History Aspirin EC [Halfprin EC] 81 mg PO QDAY #30 tablet.dr 06/03/15 04/06/19 04/05/19 Rx ISOSORBIDE MONOnitrate [Imdur ER] 30 mg PO DAILY #30 tab.er.24h 06/03/15 04/06/19 04/05/19 Rx amLODIPine 10 mg PO QDAY #30 tablet 06/03/15 04/06/19 04/05/19 Rx Acetaminophen with Codeine 1 each PO Q6HR PRN 08/05/15 04/06/19 04/05/19 History [Acetaminophen-Codeine #2 TAB] B Cmplx 4/Vit D3/C/Folic/Zinc 1 each PO QDAY 08/05/15 04/06/19 04/05/19 History [Vital-D Rx Tablet] Finasteride [Proscar] 5 mg PO QDAY 08/05/15 04/06/19 04/05/19 History Omeprazole [PriLOSEC] 40 mg PO QDAY 08/05/15 04/06/19 04/05/19 History Codeine Phosphate/Guaifenesin 10 ml PO Q6H PRN #1 bottle 04/08/19 Unknown Rx [Guaifenesin-Codeine Syrup] cefUROXime [Ceftin] 250 mg PO Q12H #12 tablet 04/08/19 Unknown Rx Nitrofurantoin [place]/M-Cryst 100 mg PO Q12HR 7 Days #14 capsule 06/05/19 Unknown Rx [Macrobid CAP] HYDROcodone/APAP 5-325 [[place] 1 each PO Q6HR PRN #10 tablet 07/04/19 Unknown Rx 5/325] cephALEXin [Keflex] 500 mg PO Q6HR #28 capsule 07/04/19 Unknown Rx Ciprofloxacin HCl [Ciprofloxacin 500 mg PO Q12HR #14 tab 07/25/19 Unknown Rx TAB] Phenazopyridine [Pyridium] 200 mg PO BID #6 tab 07/25/19 Unknown Rx traMADoL [Ultram] 50 mg PO Q6HR PRN #12 tablet 07/25/19 Unknown Rx ED Physical Exam - General Limitations: Physical Limitation General appearance: alert, anxious - Head Head exam: Present: atraumatic, normocephalic - Eye Eye exam: Present: normal appearance - ENT ENT exam: Present: mucous membranes moist - Neck Neck exam: Present: normal inspection - Respiratory Respiratory exam: Present: normal lung sounds bilaterally. Absent: respiratory distress, wheezes, rales, rhonchi - Cardiovascular Cardiovascular Exam: Present: regular rate, normal rhythm. Absent: systolic murmur, diastolic murmur, rubs, gallop - GI/Abdominal GI/Abdominal exam: Present: soft, tenderness (suprapubic), normal bowel sounds. Absent: distended, guarding, rebound, rigid - Rectal Rectal exam: Present: deferred - Extremities Exam Extremities exam: Present: normal inspection - Back Exam Back exam: Present: normal inspection - Neurological Exam Neurological exam: Present: alert, oriented X3 - Psychiatric Psychiatric exam: Present: normal affect, normal mood - Skin Skin exam: Present: warm, dry, intact, normal color. Absent: rash ED Course Vital Signs 07/25/19 07/25/19 02:37 02:38 Temperature 97.5 F L Pulse Rate 91 H Respiratory 20 20 Rate Blood Pressure 121/50 [Left] O2 Sat by Pulse 97 97 Oximetry ED Medical Decision Making - Medical Decision Making Nursing staff was able to flush the patient's catheter and we were able to have good drainage of the patient's urine. Patient did have relief of his pressure. Approximately 300 mL of urine was drained. Patient's urine did appear very cloudy. Patient likely has some debris which causes 2. Patient restarted on antibiotics and will be discharged home. Critical care attestation.: If time is entered above; I have spent that time in minutes in the direct care of this critically ill patient, excluding procedure time. ED Disposition Clinical Impression: Acute urinary retention, Noel catheter problem, UTI (urinary tract infection) Disposition: DC-01 TO HOME OR SELFCARE Is pt being admited?: No Does the pt Need Aspirin: No Condition: Stable Instructions: Urinary Tract Infection in Men (ED), Noel Catheter Placement and Care (ED) Time of Disposition: 03:02
== END 2019-07-25 03:45 | disposition home or self-care (01) ==
LOC: ED 02:03
DX: T83.098A Other mechanical complication of other urinary catheter, initial encounter (principal); X58.XXXA Exposure to other specified factors, initial encounter
CPT/HCPCS: 51702

== ENCOUNTER 2019-07-26 04:06 | Emergency (ER) | payer OTHER ==
[2019-07-26 05:31] LABS: Bacteria,Urine 3+ /HPF (Negative); Bilirubin,Urine NEG (Negative); Blood,Urine NEG (Negative); Color,Urine Yellow (Yellow); Mucus,Urine 1+ /HPF; Urobilinogen,Urine < 2.0 mg/dL (<2.0)
[2019-07-26 05:32] LABS: WBC,Urine > 182.0 /HPF (0.0-6.0)
[2019-07-26] MEDS ORDERED: HYDROcodone/ACETAMINOPHEN 5-325 MG TAB PO ONE (06:46)
[2019-07-26] MEDS ORDERED: PHENAZOPYRIDINE 200 MG TAB PO ONE (06:46)
[2019-07-26] MEDS ORDERED: ONDANSETRON 4 MG ODT TAB PO ONE (06:46)
--- NOTE | 2019-07-26 06:52 | Emergency Department Report ---
ED General Adult HPI - General Chief complaint: Medical Clearance Stated complaint: BLOCKAGE IN CATHETER Time Seen by Provider: 07/26/19 06:17 Source: patient, EMS Mode of arrival: Stretcher Limitations: No Limitations - History of Present Illness Initial comments: Patient presents to the emergency department with a chief complaint of his Noel not working. Patient also complains of burning at the insertion site of the Noel. Patient denies having a fever, cough, or abdominal pain. -: unknown Location: genitals Radiation: non-radiation Severity scale (0 -10): 4 Quality: aching Consistency: constant Improves with: none Worsens with: none Associated Symptoms: denies other symptoms Treatments Prior to Arrival: none - Related Data Home Medications Medication Instructions Recorded Confirmed Last Taken Insulin Aspart Prot/Aspart(Nf) 12 unit SQ QPM 04/02/13 04/06/19 04/05/19 [NovoLOG Mix 70/30 VIAL] Insulin Aspart Prot/Aspart(Nf) 30 unit SQ QAM 04/02/13 04/06/19 04/05/19 [NovoLOG Mix 70/30 VIAL] Metformin HCl [metFORMIN ER] 500 mg PO BID 04/02/13 04/06/19 04/05/19 carvediloL [Coreg] 25 mg PO BID 04/02/13 04/06/19 04/05/19 lisinopriL [Zestril TAB] 40 mg PO QDAY 04/02/13 04/06/19 04/05/19 Cholecalciferol (Vitamin D3) 1,000 units PO DAILY 05/31/15 04/06/19 04/05/19 [Vitamin D3 2,000 UNIT CAP] Oxybutynin [Ditropan] 1 tab PO DAILY 05/31/15 04/06/19 04/05/19 Vitamin E 1,000 unit PO DAILY 05/31/15 04/06/19 04/05/19 Acetaminophen with Codeine 1 each PO Q6HR PRN 08/05/15 04/06/19 04/05/19 [Acetaminophen-Codeine #2 TAB] B Cmplx 4/Vit D3/C/Folic/Zinc 1 each PO QDAY 08/05/15 04/06/19 04/05/19 [Vital-D Rx Tablet] Finasteride [Proscar] 5 mg PO QDAY 08/05/15 04/06/19 04/05/19 Omeprazole [PriLOSEC] 40 mg PO QDAY 08/05/15 04/06/19 04/05/19 Previous Rx's Medication Instructions Recorded Last Taken Type Aspirin EC [Halfprin EC] 81 mg PO QDAY #30 tablet.dr 06/03/15 04/05/19 Rx ISOSORBIDE MONOnitrate [Imdur ER] 30 mg PO DAILY #30 tab.er.24h 06/03/15 04/05/19 Rx amLODIPine 10 mg PO QDAY #30 tablet 06/03/15 04/05/19 Rx Codeine Phosphate/Guaifenesin 10 ml PO Q6H PRN #1 bottle 04/08/19 Unknown Rx [Guaifenesin-Codeine Syrup] cefUROXime [Ceftin] 250 mg PO Q12H #12 tablet 04/08/19 Unknown Rx Nitrofurantoin [place]/M-Cryst 100 mg PO Q12HR 7 Days #14 capsule 06/05/19 Unknown Rx [Macrobid CAP] HYDROcodone/APAP 5-325 [[place] 1 each PO Q6HR PRN #10 tablet 07/04/19 Unknown Rx 5/325] cephALEXin [Keflex] 500 mg PO Q6HR #28 capsule 07/04/19 Unknown Rx Ciprofloxacin HCl [Ciprofloxacin 500 mg PO Q12HR #14 tab 07/25/19 Unknown Rx TAB] Furosemide [Lasix TAB] 40 mg PO QDAY #30 tablet 07/25/19 Unknown Rx Phenazopyridine [Pyridium] 200 mg PO BID #6 tab 07/25/19 Unknown Rx traMADoL [Ultram] 50 mg PO Q6HR PRN #12 tablet 07/25/19 Unknown Rx Acetaminophen/Codeine [Tylenol 1 tab PO Q6H PRN #15 tab 07/26/19 Unknown Rx /Codeine # 3 tab] Phenazopyridine [Pyridium] 200 mg PO BID #5 tab 07/26/19 Unknown Rx Sulfamethoxazole/Trimethoprim 1 each PO BID #14 tablet 07/26/19 Unknown Rx [Bactrim DS TAB] Allergies Allergy/AdvReac Type Severity Reaction Status Date / Time diphenhydramine HCl Allergy Rash Verified 05/31/15 18:24 [From Benadryl] Iodinated Contrast Media Allergy Rash Verified 05/31/15 18:24 [Iodinated Contrast Media - IV Dye] ED Review of Systems ROS: Stated complaint: BLOCKAGE IN CATHETER Other details as noted in HPI Constitutional: denies: chills, fever Eyes: denies: eye pain, eye discharge, vision change ENT: denies: ear pain, throat pain Respiratory: denies: cough, shortness of breath, wheezing Cardiovascular: denies: chest pain, palpitations Endocrine: no symptoms reported Gastrointestinal: denies: abdominal pain, nausea, diarrhea Genitourinary: dysuria. denies: urgency Musculoskeletal: denies: back pain, joint swelling, arthralgia Skin: denies: rash, lesions Neurological: denies: headache, weakness, paresthesias Psychiatric: denies: anxiety, depression Hematological/Lymphatic: denies: easy bleeding, easy bruising ED Past Medical Hx - Past Medical History Previous Medical History?: Yes Hx Hypertension: Yes Hx Heart Attack/AMI: No Hx Congestive Heart Failure: No Hx Diabetes: Yes Hx Deep Vein Thrombosis: No Hx Pulmonary Embolism: No Hx GERD: Yes Hx Liver Disease: No Hx Arthritis: Yes Hx Psychiatric Treatment: Yes (schizophrenia) Hx Asthma: Yes Hx COPD: Yes Hx Tuberculosis: No Additional medical history: hyperlipidemia, malignant neoplasm of prostate, benign prostatic hyperplasia and anemia - Surgical History Past Surgical History?: Yes Hx Coronary Stent: No Hx Pacemaker: No Hx Internal Defibrillator: No Additional Surgical History: cataract surgery both eyes, hemorrhoidectomy - Social History Smoking Status: Former Smoker Substance Use Type: Alcohol, Prescribed - Medications Home Medications: Home Medications Medication Instructions Recorded Confirmed Last Taken Type Insulin Aspart Prot/Aspart(Nf) 12 unit SQ QPM 04/02/13 04/06/19 04/05/19 History [NovoLOG Mix 70/30 VIAL] Insulin Aspart Prot/Aspart(Nf) 30 unit SQ QAM 04/02/13 04/06/19 04/05/19 History [NovoLOG Mix 70/30 VIAL] Metformin HCl [metFORMIN ER] 500 mg PO BID 04/02/13 04/06/19 04/05/19 History carvediloL [Coreg] 25 mg PO BID 04/02/13 04/06/19 04/05/19 History lisinopriL [Zestril TAB] 40 mg PO QDAY 04/02/13 04/06/19 04/05/19 History Cholecalciferol (Vitamin D3) 1,000 units PO DAILY 05/31/15 04/06/19 04/05/19 History [Vitamin D3 2,000 UNIT CAP] Oxybutynin [Ditropan] 1 tab PO DAILY 05/31/15 04/06/19 04/05/19 History Vitamin E 1,000 unit PO DAILY 05/31/15 04/06/19 04/05/19 History Aspirin EC [Halfprin EC] 81 mg PO QDAY #30 tablet.dr 06/03/15 04/06/19 04/05/19 Rx ISOSORBIDE MONOnitrate [Imdur ER] 30 mg PO DAILY #30 tab.er.24h 06/03/15 04/06/19 04/05/19 Rx amLODIPine 10 mg PO QDAY #30 tablet 06/03/15 04/06/19 04/05/19 Rx Acetaminophen with Codeine 1 each PO Q6HR PRN 08/05/15 04/06/19 04/05/19 History [Acetaminophen-Codeine #2 TAB] B Cmplx 4/Vit D3/C/Folic/Zinc 1 each PO QDAY 08/05/15 04/06/19 04/05/19 History [Vital-D Rx Tablet] Finasteride [Proscar] 5 mg PO QDAY 08/05/15 04/06/19 04/05/19 History Omeprazole [PriLOSEC] 40 mg PO QDAY 08/05/15 04/06/19 04/05/19 History Codeine Phosphate/Guaifenesin 10 ml PO Q6H PRN #1 bottle 04/08/19 Unknown Rx [Guaifenesin-Codeine Syrup] cefUROXime [Ceftin] 250 mg PO Q12H #12 tablet 04/08/19 Unknown Rx Nitrofurantoin [place]/M-Cryst 100 mg PO Q12HR 7 Days #14 capsule 06/05/19 Unknown Rx [Macrobid CAP] HYDROcodone/APAP 5-325 [[place] 1 each PO Q6HR PRN #10 tablet 07/04/19 Unknown Rx 5/325] cephALEXin [Keflex] 500 mg PO Q6HR #28 capsule 07/04/19 Unknown Rx Ciprofloxacin HCl [Ciprofloxacin 500 mg PO Q12HR #14 tab 07/25/19 Unknown Rx TAB] Furosemide [Lasix TAB] 40 mg PO QDAY #30 tablet 07/25/19 Unknown Rx Phenazopyridine [Pyridium] 200 mg PO BID #6 tab 07/25/19 Unknown Rx traMADoL [Ultram] 50 mg PO Q6HR PRN #12 tablet 07/25/19 Unknown Rx Acetaminophen/Codeine [Tylenol 1 tab PO Q6H PRN #15 tab 07/26/19 Unknown Rx /Codeine # 3 tab] Phenazopyridine [Pyridium] 200 mg PO BID #5 tab 07/26/19 Unknown Rx Sulfamethoxazole/Trimethoprim 1 each PO BID #14 tablet 07/26/19 Unknown Rx [Bactrim DS TAB] ED Physical Exam - General Limitations: No Limitations General appearance: alert, in no apparent distress - Head Head exam: Present: atraumatic, normocephalic - Eye Eye exam: Present: normal appearance, PERRL, EOMI - ENT ENT exam: Present: mucous membranes moist - Neck Neck exam: Present: normal inspection - Respiratory Respiratory exam: Present: normal lung sounds bilaterally. Absent: respiratory distress - Cardiovascular Cardiovascular Exam: Present: regular rate, normal rhythm. Absent: systolic murmur, diastolic murmur, rubs, gallop - GI/Abdominal GI/Abdominal exam: Present: soft, normal bowel sounds - Rectal Rectal exam: Present: deferred - exam: Present: other (Noel in place) - Extremities Exam Extremities exam: Present: normal inspection - Back Exam Back exam: Present: normal inspection - Neurological Exam Neurological exam: Present: alert, oriented X3, CN II-XII intact. Absent: motor sensory deficit - Psychiatric Psychiatric exam: Present: normal affect, normal mood - Skin Skin exam: Present: warm, dry, intact, normal color. Absent: rash ED Course Vital Signs 07/26/19 07/26/19 04:16 04:49 Temperature 98.0 F Pulse Rate 82 Respiratory 20 20 Rate Blood Pressure 162/87 [Left] O2 Sat by Pulse 96 Oximetry ED Medical Decision Making - Medical Decision Making Noel was replaced with good return of urine Critical care attestation.: If time is entered above; I have spent that time in minutes in the direct care of this critically ill patient, excluding procedure time. ED Disposition Clinical Impression: Noel catheter problem, UTI (urinary tract infection) Disposition: DC- TO HOME OR SELFCARE Is pt being admited?: No Does the pt Need Aspirin: No Condition: Fair Instructions: Noel Catheter Placement and Care (ED), Urinary Tract Infection in Men (ED) Additional Instructions: return if worse Prescriptions: Sulfamethoxazole/Trimethoprim [Bactrim DS TAB] 1 each PO BID #14 tablet Phenazopyridine [Pyridium] 200 mg PO BID #5 tab Acetaminophen/Codeine [Tylenol /Codeine # 3 tab] 1 tab PO Q6H PRN #15 tab PRN Reason: pain Referrals: PRIMARY CAREMD [Primary Care Provider] - 3-5 Days [facility] [Provider Group] - 3-5 Days [facility] [Provider Group] - 3-5 Days DOUGLAS GORMAN MD [Staff Physician] - 3-5 Days Time of Disposition: 06:50
[2019-07-26 07:05] VITALS: BP 174/62
== END 2019-07-26 07:34 | disposition home or self-care (01) ==
LOC: ED 04:06
DX: T83.098A Other mechanical complication of other urinary catheter, initial encounter (principal); N39.0 Urinary tract infection, site not specified; I10 Essential (primary) hypertension; E11.9 Type 2 diabetes mellitus without complications; K21.9 Gastro-esophageal reflux disease without esophagitis; M19.90 Unspecified osteoarthritis, unspecified site; F20.9 Schizophrenia, unspecified; F10.10 Alcohol abuse, uncomplicated; J44.9 Chronic obstructive pulmonary disease, unspecified; E78.5 Hyperlipidemia, unspecified; Z85.46 Personal history of malignant neoplasm of prostate; Z98.890 Other specified postprocedural states; Z88.8 Allergy status to other drugs, medicaments and biological substances; Z87.891 Personal history of nicotine dependence; Z79.899 Other long term (current) drug therapy; Y84.8 Other medical procedures as the cause of abnormal reaction of the patient, or of later complication, without mention of misadventure at the time of the procedure; Y92.89 Other specified places as the place of occurrence of the external cause
CPT/HCPCS: 51702; 81001; Q0162

== ENCOUNTER 2019-07-30 11:31 | Emergency (ER) | payer OTHER ==
[2019-07-30 14:21] LABS: Basophils % (Auto) 0.4 % (0.0-1.8); Eosinophils # (Auto) 0.1 K/mm3 (0.0-0.4); Eosinophils % (Auto) 1.5 % (0.0-4.3); Hematocrit 36.5 % (35.5-45.6); Hemoglobin 12.5 gm/dl (11.8-15.2); Lymphocytes # (Auto) 1.6 K/mm3 (1.2-5.4); Mean Corpuscular HGB Conc 34 % (32-34); Mean Corpuscular Volume 98 fl (84-94); Monocytes # (Auto) 1.1 K/mm3 (0.0-0.8); Monocytes % (Auto) 11.4 % (0.0-7.3); Platelet Count 286 K/mm3 (140-440); Red Blood Count 3.73 M/mm3 (3.65-5.03); Red Cell Distribution Width 13.5 % (13.2-15.2)
--- NOTE | 2019-07-30 14:32 | XRay Report ---
CHEST 1 VIEW INDICATION: Difficulty in breathing. COMPARISON: 05/14/2019 FINDINGS: Support devices: None. Heart: Within normal limits. Lungs/Pleura: No acute air space or interstitial disease. No pneumothorax. Additional findings: None. IMPRESSION: No acute findings. Signer Name: Michel Ford Jr, MD Signed: 07/30/2019 2:27 PM Workstation Name: [id number]
[2019-07-30 14:46] LABS: Alanine Aminotransferase 12 units/L (7-56); Albumin 3.7 g/dL (3.9-5); BUN/Creatinine Ratio 17; Blood Urea Nitrogen 10 mg/dL (9-20); Calcium 9.5 mg/dL (8.4-10.2); Hemolysis Index 5
[2019-07-30] MEDS ORDERED: BENZONATATE 100 MG CAP PO ONE (15:06)
[2019-07-30] MEDS ORDERED: ALBUTEROL 2.5 MG/3 ML NEBU IH ONE (15:06)
[2019-07-30] MEDS ORDERED: SODIUM CHLORIDE 0.9% 1000 ML 1,000 ML IV ONE (15:06)
[2019-07-30] MEDS ORDERED: IPRATROPIUM 0.02% NEBU 2.5 ML IH ONE (15:06)
[2019-07-30] MEDS ORDERED: HYDROcodone/ACETAMINOPHEN 5-325 MG TAB PO ONE (15:06)
[2019-07-30] MEDS ORDERED: methylPREDNISolone Sod Succinate 125 MG/2 ML INJ IV ONE (15:06)
[2019-07-30] MEDS ORDERED: AZITHROMYCIN 250 MG TAB PO ONE (15:06)
--- NOTE | 2019-07-30 15:47 | Emergency Department Report ---
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 Cough is nonproductive. Patient having intermittent wheezing improved with home nebulized treatment. No fever reported. Reported chest tightness associated with significant coughing spells - Related Data Home Medications Medication Instructions Recorded Confirmed Last Taken Insulin Aspart Prot/Aspart(Nf) 12 unit SQ QPM 04/02/13 04/06/19 04/05/19 [NovoLOG Mix 70/30 VIAL] Insulin Aspart Prot/Aspart(Nf) 30 unit SQ QAM 04/02/13 04/06/19 04/05/19 [NovoLOG Mix 70/30 VIAL] Metformin HCl [metFORMIN ER] 500 mg PO BID 04/02/13 04/06/19 04/05/19 carvediloL [Coreg] 25 mg PO BID 04/02/13 04/06/19 04/05/19 lisinopriL [Zestril TAB] 40 mg PO QDAY 04/02/13 04/06/19 04/05/19 Cholecalciferol (Vitamin D3) 1,000 units PO DAILY 05/31/15 04/06/19 04/05/19 [Vitamin D3 2,000 UNIT CAP] Oxybutynin [Ditropan] 1 tab PO DAILY 05/31/15 04/06/19 04/05/19 Vitamin E 1,000 unit PO DAILY 05/31/15 04/06/19 04/05/19 Acetaminophen with Codeine 1 each PO Q6HR PRN 08/05/15 04/06/19 04/05/19 [Acetaminophen-Codeine #2 TAB] B Cmplx 4/Vit D3/C/Folic/Zinc 1 each PO QDAY 08/05/15 04/06/19 04/05/19 [Vital-D Rx Tablet] Finasteride [Proscar] 5 mg PO QDAY 08/05/15 04/06/19 04/05/19 Omeprazole [PriLOSEC] 40 mg PO QDAY 08/05/15 04/06/19 04/05/19 Previous Rx's Medication Instructions Recorded Last Taken Type Aspirin EC [Halfprin EC] 81 mg PO QDAY #30 tablet.dr 06/03/15 04/05/19 Rx ISOSORBIDE MONOnitrate [Imdur ER] 30 mg PO DAILY #30 tab.er.24h 06/03/15 04/05/19 Rx amLODIPine 10 mg PO QDAY #30 tablet 06/03/15 04/05/19 Rx cefUROXime [Ceftin] 250 mg PO Q12H #12 tablet 04/08/19 Unknown Rx Nitrofurantoin [place]/M-Cryst 100 mg PO Q12HR 7 Days #14 capsule 06/05/19 Unknown Rx [Macrobid CAP] HYDROcodone/APAP 5-325 [[place] 1 each PO Q6HR PRN #10 tablet 07/04/19 Unknown Rx 5/325] cephALEXin [Keflex] 500 mg PO Q6HR #28 capsule 07/04/19 Unknown Rx Ciprofloxacin HCl [Ciprofloxacin 500 mg PO Q12HR #14 tab 07/25/19 Unknown Rx TAB] Furosemide [Lasix TAB] 40 mg PO QDAY #30 tablet 07/25/19 Unknown Rx Phenazopyridine [Pyridium] 200 mg PO BID #6 tab 07/25/19 Unknown Rx traMADoL [Ultram] 50 mg PO Q6HR PRN #12 tablet 07/25/19 Unknown Rx Acetaminophen/Codeine [Tylenol 1 tab PO Q6H PRN #15 tab 07/26/19 Unknown Rx /Codeine # 3 tab] Phenazopyridine [Pyridium] 200 mg PO BID #5 tab 07/26/19 Unknown Rx Sulfamethoxazole/Trimethoprim 1 each PO BID #14 tablet 07/26/19 Unknown Rx [Bactrim DS TAB] Azithromycin [Zithromax Z-TERE] 1 dose PO DAILY 5 Days tab 07/30/19 Unknown Rx Codeine Phosphate/Guaifenesin 10 ml PO Q6H PRN #15 dose 07/30/19 Unknown Rx [Guaifenesin-Codeine Syrup] Prednisone [predniSONE 10 mg 10 mg PO .TAPER #1 tab.ds.pk 07/30/19 Unknown Rx (6-Day Pack, 21 Tabs)] Allergies Allergy/AdvReac Type Severity Reaction Status Date / Time diphenhydramine HCl Allergy Rash Verified 05/31/15 18:24 [From Benadryl] Iodinated Contrast Media Allergy Rash Verified 05/31/15 18:24 [Iodinated Contrast Media - IV Dye] ED Review of Systems ROS: Stated complaint: MARCIAL/CHEST PAIN Other details as noted in HPI Comment: All other systems reviewed and negative ED Past Medical Hx - Past Medical History Previous Medical History?: Yes Hx Hypertension: Yes Hx Heart Attack/AMI: No Hx Congestive Heart Failure: No Hx Diabetes: Yes Hx Deep Vein Thrombosis: No Hx Pulmonary Embolism: No Hx GERD: Yes Hx Liver Disease: No Hx Arthritis: Yes Hx Psychiatric Treatment: Yes (schizophrenia) Hx Asthma: Yes Hx COPD: Yes Hx Tuberculosis: No Additional medical history: hyperlipidemia, malignant neoplasm of prostate, benign prostatic hyperplasia and anemia - Surgical History Past Surgical History?: Yes Hx Coronary Stent: No Hx Pacemaker: No Hx Internal Defibrillator: No Additional Surgical History: cataract surgery both eyes, hemorrhoidectomy - Social History Smoking Status: Unknown if ever smoked Substance Use Type: None - Medications Home Medications: Home Medications Medication Instructions Recorded Confirmed Last Taken Type Insulin Aspart Prot/Aspart(Nf) 12 unit SQ QPM 04/02/13 04/06/19 04/05/19 History [NovoLOG Mix 70/30 VIAL] Insulin Aspart Prot/Aspart(Nf) 30 unit SQ QAM 04/02/13 04/06/19 04/05/19 History [NovoLOG Mix 70/30 VIAL] Metformin HCl [metFORMIN ER] 500 mg PO BID 04/02/13 04/06/19 04/05/19 History carvediloL [Coreg] 25 mg PO BID 04/02/13 04/06/19 04/05/19 History lisinopriL [Zestril TAB] 40 mg PO QDAY 04/02/13 04/06/19 04/05/19 History Cholecalciferol (Vitamin D3) 1,000 units PO DAILY 05/31/15 04/06/19 04/05/19 History [Vitamin D3 2,000 UNIT CAP] Oxybutynin [Ditropan] 1 tab PO DAILY 05/31/15 04/06/19 04/05/19 History Vitamin E 1,000 unit PO DAILY 05/31/15 04/06/19 04/05/19 History Aspirin EC [Halfprin EC] 81 mg PO QDAY #30 tablet.dr 06/03/15 04/06/19 04/05/19 Rx ISOSORBIDE MONOnitrate [Imdur ER] 30 mg PO DAILY #30 tab.er.24h 06/03/15 04/06/19 04/05/19 Rx amLODIPine 10 mg PO QDAY #30 tablet 06/03/15 04/06/19 04/05/19 Rx Acetaminophen with Codeine 1 each PO Q6HR PRN 08/05/15 04/06/19 04/05/19 History [Acetaminophen-Codeine #2 TAB] B Cmplx 4/Vit D3/C/Folic/Zinc 1 each PO QDAY 08/05/15 04/06/19 04/05/19 History [Vital-D Rx Tablet] Finasteride [Proscar] 5 mg PO QDAY 08/05/15 04/06/19 04/05/19 History Omeprazole [PriLOSEC] 40 mg PO QDAY 08/05/15 04/06/19 04/05/19 History cefUROXime [Ceftin] 250 mg PO Q12H #12 tablet 04/08/19 Unknown Rx Nitrofurantoin [place]/M-Cryst 100 mg PO Q12HR 7 Days #14 capsule 06/05/19 Unknown Rx [Macrobid CAP] HYDROcodone/APAP 5-325 [[place] 1 each PO Q6HR PRN #10 tablet 07/04/19 Unknown Rx 5/325] cephALEXin [Keflex] 500 mg PO Q6HR #28 capsule 07/04/19 Unknown Rx Ciprofloxacin HCl [Ciprofloxacin 500 mg PO Q12HR #14 tab 07/25/19 Unknown Rx TAB] Furosemide [Lasix TAB] 40 mg PO QDAY #30 tablet 07/25/19 Unknown Rx Phenazopyridine [Pyridium] 200 mg PO BID #6 tab 07/25/19 Unknown Rx traMADoL [Ultram] 50 mg PO Q6HR PRN #12 tablet 07/25/19 Unknown Rx Acetaminophen/Codeine [Tylenol 1 tab PO Q6H PRN #15 tab 07/26/19 Unknown Rx /Codeine # 3 tab] Phenazopyridine [Pyridium] 200 mg PO BID #5 tab 07/26/19 Unknown Rx Sulfamethoxazole/Trimethoprim 1 each PO BID #14 tablet 07/26/19 Unknown Rx [Bactrim DS TAB] Azithromycin [Zithromax Z-TERE] 1 dose PO DAILY 5 Days tab 07/30/19 Unknown Rx Codeine Phosphate/Guaifenesin 10 ml PO Q6H PRN #15 dose 07/30/19 Unknown Rx [Guaifenesin-Codeine Syrup] Prednisone [predniSONE 10 mg 10 mg PO .TAPER #1 tab.ds.pk 07/30/19 Unknown Rx (6-Day Pack, 21 Tabs)] ED Physical Exam - General Limitations: No Limitations - Other Other exam information: General: No acute distress Head: Atraumatic Eyes: normal appearance ENT: Moist mucous membranes Neck: Normal appearance, no midline tenderness Chest: Cl significant coughing with intermittent wheezing, no tachypnea or accessory muscle use CV: Regular rate and rhythm Abdomen: Soft, normal bowel sounds, left lower quadrant tenderness r, nondistended, no rebound or guarding : Indwelling Noel catheter with clear urine output Back: Normal inspection Extremity: Normal inspection, full range of motion, no calf tenderness or leg edema Neuro: Alert O x 3, no facial asymmetry, speech clear, no gross motor sensory deficit Psych: Appropriate behavior Skin: No rash, no ulceration to sacrum or buttock ED Course Vital Signs 07/30/19 07/30/19 07/30/19 11:35 16:02 16:15 Temperature 98.5 F Pulse Rate 84 82 Pulse Rate [ 82 Anterior Bilateral Throughout] Respiratory 18 16 Rate Respiratory 17 Rate [Anterior Bilateral Throughout] Blood Pressure 144/81 Blood Pressure 166/86 [Left] O2 Sat by Pulse 100 99 Oximetry 07/30/19 07/30/19 18:36 20:00 Temperature Pulse Rate 85 95 H Pulse Rate [ Anterior Bilateral Throughout] Respiratory 16 16 Rate Respiratory Rate [Anterior Bilateral Throughout] Blood Pressure Blood Pressure 119/56 126/58 [Left] O2 Sat by Pulse 93 99 Oximetry ED Medical Decision Making - Lab Data Result diagrams: 07/30/19 14:05 07/30/19 14:05 Lab Results 07/30/19 07/30/19 Range/Units 14:05 14:05 WBC 9.7 (4.5-11.0) K/mm3 RBC 3.73 (3.65-5.03) M/mm3 Hgb 12.5 (11.8-15.2) gm/dl Hct 36.5 (35.5-45.6) % MCV 98 H (84-94) fl MCH 34 H (28-32) pg MCHC 34 (32-34) % RDW 13.5 (13.2-15.2) % Plt Count 286 (140-440) K/mm3 Lymph % (Auto) 16.0 (13.4-35.0) % [place] % (Auto) 11.4 H (0.0-7.3) % Eos % (Auto) 1.5 (0.0-4.3) % Baso % (Auto) 0.4 (0.0-1.8) % Lymph # 1.6 (1.2-5.4) K/mm3 [place] # 1.1 H (0.0-0.8) K/mm3 Eos # 0.1 (0.0-0.4) K/mm3 Baso # 0.0 (0.0-0.1) K/mm3 Seg Neutrophils % 70.7 H (40.0-70.0) % Seg Neutrophils # 6.9 (1.8-7.7) K/mm3 Sodium 129 L (137-145) mmol/L Potassium 4.3 (3.6-5.0) mmol/L Chloride 89.0 L (98-107) mmol/L Carbon Dioxide 24 (22-30) mmol/L Anion Gap 20 mmol/L BUN 10 (9-20) mg/dL Creatinine 0.6 L (0.8-1.5) mg/dL Estimated GFR > 60 ml/min BUN/Creatinine Ratio 17 % Glucose 147 H (75-100) mg/dL Calcium 9.5 (8.4-10.2) mg/dL Total Bilirubin 0.20 (0.1-1.2) mg/dL AST 12 (5-40) units/L ALT 12 (7-56) units/L Alkaline Phosphatase 59 (35-129) units/L Total Protein 7.1 (6.3-8.2) g/dL Albumin 3.7 L (3.9-5) g/dL Albumin/Globulin Ratio 1.1 % - EKG Data -: EKG Interpreted by [facility] EKG shows normal: sinus rhythm, ST-T waves (no stemi) Rate: normal - Radiology Data Radiology results: report reviewed CHEST 1 VIEW INDICATION: Difficulty in breathing. COMPARISON: 05/14/2019 FINDINGS: Support devices: None. Heart: Within normal limits. Lungs/Pleura: No acute air space or interstitial disease. No pneumothorax. Additional findings: None. IMPRESSION: No acute findings. - Medical Decision Making Patient improved with ED treatment. He was provided nutrashield skin protectant for his buttock area per his request there was no active skin breakdown noted. Patient will be treated at home for acute bronchitis and will be treated with antibiotics to cover for atypical pneumonia Patient also has chronic hyponatremia and received 1 L normal saline. Sodium is around patient's baseline as per previous medical record - Differential Diagnosis Pneumonia, bronchitis, CHF, URI, COPD, asthma Critical Care Time: No Critical care attestation.: If time is entered above; I have spent that time in minutes in the direct care of this critically ill patient, excluding procedure time. ED Disposition Clinical Impression: Acute asthmatic bronchitis, Chronic hyponatremia Disposition: - TO HOME OR SELFCARE Is pt being admited?: No Does the pt Need Aspirin: No Condition: Stable Instructions: Hyponatremia (ED), Acute Bronchitis (ED) Additional Instructions: Take the medication as prescribed. Your sodium is low today and has been low with previous visits. Continue to have this monitored by your primary care doctor. Follow-up with your doctor or doctor/clinic provided. Return if symptoms worsen as indicated by your discharge instructions. Prescriptions: Codeine Phosphate/Guaifenesin [Guaifenesin-Codeine Syrup] 10 ml PO Q6H PRN #15 dose PRN Reason: Cough Prednisone [predniSONE 10 mg (6-Day Pack, 21 Tabs)] 10 mg PO .TAPER #1 tab.ds.pk Azithromycin [Zithromax Z-TERE] 1 dose PO DAILY 5 Days tab Referrals: PRIMARY CAREMD [Primary Care Provider] - 3-5 Days MEDARDO GRIGSBY MD [Staff Physician] - 3-5 Days Time of Disposition: 20:21
[2019-07-30] MEDS ORDERED: PROMETHAZINE/CODEINE 6.25-10 MG ORAL LIQD 5 ML PO ONE (19:15)
[2019-07-30 20:12] VITALS: BP 126/58
== END 2019-07-30 21:25 | disposition home or self-care (01) ==
LOC: ED 11:31
DX: J20.9 Acute bronchitis, unspecified (principal); E87.1 Hypo-osmolality and hyponatremia; I10 Essential (primary) hypertension; E11.9 Type 2 diabetes mellitus without complications; K21.9 Gastro-esophageal reflux disease without esophagitis; F20.9 Schizophrenia, unspecified; Z98.890 Other specified postprocedural states; Z79.899 Other long term (current) drug therapy; Z91.048 Other nonmedicinal substance allergy status; Z88.8 Allergy status to other drugs, medicaments and biological substances
CPT/HCPCS: 36415; 71045; 80053; 85025; 93005; 93010; 94640; 96374; 99284; J2930; J7030; 94644

== ENCOUNTER 2019-08-20 02:28 | Emergency (ER) | payer OTHER ==
[2019-08-20] MEDS ORDERED: SODIUM CHLORIDE IRRI 500 ML 500 ML IR ONE (03:21)
[2019-08-20] MEDS ORDERED: ONDANSETRON 4 MG/2 ML INJ IV ONE (03:45)
[2019-08-20] MEDS ORDERED: HYDROmorphone 1 MG/1 ML INJ IV ONE (03:45)
[2019-08-20 04:08] LABS: Basophils % (Auto) 0.2 % (0.0-1.8); Eosinophils # (Auto) 0.1 K/mm3 (0.0-0.4); Eosinophils % (Auto) 0.6 % (0.0-4.3); Hemoglobin 11.9 gm/dl (11.8-15.2); Lymphocytes # (Auto) 0.8 K/mm3 (1.2-5.4); Lymphocytes % (Auto) 8.1 % (13.4-35.0); Mean Corpuscular HGB Conc 34 % (32-34); Mean Corpuscular Volume 98 fl (84-94); Monocytes # (Auto) 0.8 K/mm3 (0.0-0.8); Monocytes % (Auto) 8.5 % (0.0-7.3); Platelet Count 259 K/mm3 (140-440); Red Blood Count 3.58 M/mm3 (3.65-5.03); Red Cell Distribution Width 13.1 % (13.2-15.2)
[2019-08-20] MEDS ORDERED: PHENAZOPYRIDINE 200 MG TAB PO ONE (04:09)
[2019-08-20 04:22] LABS: BUN/Creatinine Ratio 19; Blood Urea Nitrogen 13 mg/dL (9-20); Calcium 9.4 mg/dL (8.4-10.2); Hemolysis Index 12
[2019-08-20 04:33] LABS: Amphetamine Screen,Urine PRESUMPTIVE NEGATIVE; Benzodiazepines Screen,Urine PRESUMPTIVE NEGATIVE; Cocaine Screen,Urine PRESUMPTIVE NEGATIVE; Methadone Screen,Urine PRESUMPTIVE NEGATIVE
[2019-08-20 04:36] LABS: Amorphous Crystals,Urine Few; Bacteria,Urine 1+ /HPF (Negative); Bilirubin,Urine NEG (Negative); Blood,Urine NEG (Negative); Color,Urine Yellow (Yellow); Mucus,Urine 3+ /HPF; Urobilinogen,Urine < 2.0 mg/dL (<2.0)
--- NOTE | 2019-08-20 04:36 | Emergency Department Report ---
ED Male HPI - General Chief complaint: Tube Replacement Stated complaint: GROIN PAIN/CATHETER BLOCKAGE Time Seen by Provider: 08/20/19 03:38 Source: patient Mode of arrival: Ambulatory Limitations: No Limitations - History of Present Illness Initial comments: 79-year-old male with a past medical history of multiple chronic medical conditions including prostate cancer and chronic urinary retention presents to the hospital complaining of no drainage from Noel since 4 PM. Patient noticed that around 2 PM urine was coming from the urethral meatus around the tube. Patient presents to the hospital with suprapubic pain. Patient states Noel was just placed last week aug 09. Patient denies fever, nausea, or vomiting. Patient states he is now following with [facility] - Related Data Home Medications Medication Instructions Recorded Confirmed Last Taken Insulin Aspart Prot/Aspart(Nf) 12 unit SQ QPM 04/02/13 04/06/19 04/05/19 [NovoLOG Mix 70/30 VIAL] Insulin Aspart Prot/Aspart(Nf) 30 unit SQ QAM 04/02/13 04/06/19 04/05/19 [NovoLOG Mix 70/30 VIAL] Metformin HCl [metFORMIN ER] 500 mg PO BID 04/02/13 04/06/19 04/05/19 carvediloL [Coreg] 25 mg PO BID 04/02/13 04/06/19 04/05/19 lisinopriL [Zestril TAB] 40 mg PO QDAY 04/02/13 04/06/19 04/05/19 Cholecalciferol (Vitamin D3) 1,000 units PO DAILY 05/31/15 04/06/19 04/05/19 [Vitamin D3 2,000 UNIT CAP] Oxybutynin [Ditropan] 1 tab PO DAILY 05/31/15 04/06/19 04/05/19 Vitamin E 1,000 unit PO DAILY 05/31/15 04/06/19 04/05/19 Acetaminophen with Codeine 1 each PO Q6HR PRN 08/05/15 04/06/19 04/05/19 [Acetaminophen-Codeine #2 TAB] B Cmplx 4/Vit D3/C/Folic/Zinc 1 each PO QDAY 08/05/15 04/06/19 04/05/19 [Vital-D Rx Tablet] Finasteride [Proscar] 5 mg PO QDAY 08/05/15 04/06/19 04/05/19 Omeprazole [PriLOSEC] 40 mg PO QDAY 08/05/15 04/06/19 04/05/19 Previous Rx's Medication Instructions Recorded Last Taken Type Aspirin EC [Halfprin EC] 81 mg PO QDAY #30 tablet.dr 06/03/15 04/05/19 Rx ISOSORBIDE MONOnitrate [Imdur ER] 30 mg PO DAILY #30 tab.er.24h 06/03/15 04/05/19 Rx amLODIPine 10 mg PO QDAY #30 tablet 06/03/15 04/05/19 Rx cefUROXime [Ceftin] 250 mg PO Q12H #12 tablet 04/08/19 Unknown Rx Nitrofurantoin [place]/M-Cryst 100 mg PO Q12HR 7 Days #14 capsule 06/05/19 Unknown Rx [Macrobid CAP] HYDROcodone/APAP 5-325 [[place] 1 each PO Q6HR PRN #10 tablet 07/04/19 Unknown Rx 5/325] Ciprofloxacin HCl [Ciprofloxacin 500 mg PO Q12HR #14 tab 07/25/19 Unknown Rx TAB] Furosemide [Lasix TAB] 40 mg PO QDAY #30 tablet 07/25/19 Unknown Rx Phenazopyridine [Pyridium] 200 mg PO BID #6 tab 07/25/19 Unknown Rx traMADoL [Ultram] 50 mg PO Q6HR PRN #12 tablet 07/25/19 Unknown Rx Acetaminophen/Codeine [Tylenol 1 tab PO Q6H PRN #15 tab 07/26/19 Unknown Rx /Codeine # 3 tab] Phenazopyridine [Pyridium] 200 mg PO BID #5 tab 07/26/19 Unknown Rx Sulfamethoxazole/Trimethoprim 1 each PO BID #14 tablet 07/26/19 Unknown Rx [Bactrim DS TAB] Azithromycin [Zithromax Z-TERE] 1 dose PO DAILY 5 Days tab 07/30/19 Unknown Rx Codeine Phosphate/Guaifenesin 10 ml PO Q6H PRN #15 dose 07/30/19 Unknown Rx [Guaifenesin-Codeine Syrup] Prednisone [predniSONE 10 mg 10 mg PO .TAPER #1 tab.ds.pk 07/30/19 Unknown Rx (6-Day Pack, 21 Tabs)] Phenazopyridine [Pyridium] 100 mg PO TID #5 tab 03/06/20 Unknown Rx cephALEXin [Keflex] 500 mg PO Q6HR #28 capsule 08/20/19 Unknown Rx Allergies Allergy/AdvReac Type Severity Reaction Status Date / Time diphenhydramine HCl Allergy Rash Verified 05/31/15 18:24 [From Benadryl] Iodinated Contrast Media Allergy Rash Verified 05/31/15 18:24 [Iodinated Contrast Media - IV Dye] ED Review of Systems ROS: Stated complaint: GROIN PAIN/CATHETER BLOCKAGE Other details as noted in HPI Comment: All other systems reviewed and negative ED Past Medical Hx - Past Medical History Previous Medical History?: Yes Hx Hypertension: Yes Hx Heart Attack/AMI: No Hx Congestive Heart Failure: No Hx Diabetes: Yes Hx Deep Vein Thrombosis: No Hx Pulmonary Embolism: No Hx GERD: Yes Hx Liver Disease: No Hx Arthritis: Yes Hx Psychiatric Treatment: Yes (schizophrenia) Hx Asthma: Yes Hx COPD: Yes Hx Tuberculosis: No Additional medical history: hyperlipidemia, malignant neoplasm of prostate, benign prostatic hyperplasia and anemia - Surgical History Past Surgical History?: Yes Hx Coronary Stent: No Hx Pacemaker: No Hx Internal Defibrillator: No Additional Surgical History: cataract surgery both eyes, hemorrhoidectomy - Social History Smoking Status: Former Smoker Substance Use Type: None - Medications Home Medications: Home Medications Medication Instructions Recorded Confirmed Last Taken Type Insulin Aspart Prot/Aspart(Nf) 12 unit SQ QPM 04/02/13 04/06/19 04/05/19 History [NovoLOG Mix 70/30 VIAL] Insulin Aspart Prot/Aspart(Nf) 30 unit SQ QAM 04/02/13 04/06/19 04/05/19 History [NovoLOG Mix 70/30 VIAL] Metformin HCl [metFORMIN ER] 500 mg PO BID 04/02/13 04/06/19 04/05/19 History carvediloL [Coreg] 25 mg PO BID 04/02/13 04/06/19 04/05/19 History lisinopriL [Zestril TAB] 40 mg PO QDAY 04/02/13 04/06/19 04/05/19 History Cholecalciferol (Vitamin D3) 1,000 units PO DAILY 05/31/15 04/06/19 04/05/19 History [Vitamin D3 2,000 UNIT CAP] Oxybutynin [Ditropan] 1 tab PO DAILY 05/31/15 04/06/19 04/05/19 History Vitamin E 1,000 unit PO DAILY 05/31/15 04/06/19 04/05/19 History Aspirin EC [Halfprin EC] 81 mg PO QDAY #30 tablet. 06/03/15 04/06/19 04/05/19 Rx ISOSORBIDE MONOnitrate [Imdur ER] 30 mg PO DAILY #30 tab.er.24h 06/03/15 04/06/19 04/05/19 Rx amLODIPine 10 mg PO QDAY #30 tablet 06/03/15 04/06/19 04/05/19 Rx Acetaminophen with Codeine 1 each PO Q6HR PRN 08/05/15 04/06/19 04/05/19 History [Acetaminophen-Codeine #2 TAB] B Cmplx 4/Vit D3/C/Folic/Zinc 1 each PO QDAY 08/05/15 04/06/19 04/05/19 History [Vital-D Rx Tablet] Finasteride [Proscar] 5 mg PO QDAY 08/05/15 04/06/19 04/05/19 History Omeprazole [PriLOSEC] 40 mg PO QDAY 08/05/15 04/06/19 04/05/19 History cefUROXime [Ceftin] 250 mg PO Q12H #12 tablet 04/08/19 Unknown Rx Nitrofurantoin [place]/M-Cryst 100 mg PO Q12HR 7 Days #14 capsule 06/05/19 Unknown Rx [Macrobid CAP] HYDROcodone/APAP 5-325 [[place] 1 each PO Q6HR PRN #10 tablet 07/04/19 Unknown Rx 5/325] Ciprofloxacin HCl [Ciprofloxacin 500 mg PO Q12HR #14 tab 07/25/19 Unknown Rx TAB] Furosemide [Lasix TAB] 40 mg PO QDAY #30 tablet 07/25/19 Unknown Rx Phenazopyridine [Pyridium] 200 mg PO BID #6 tab 07/25/19 Unknown Rx traMADoL [Ultram] 50 mg PO Q6HR PRN #12 tablet 07/25/19 Unknown Rx Acetaminophen/Codeine [Tylenol 1 tab PO Q6H PRN #15 tab 07/26/19 Unknown Rx /Codeine # 3 tab] Phenazopyridine [Pyridium] 200 mg PO BID #5 tab 07/26/19 Unknown Rx Sulfamethoxazole/Trimethoprim 1 each PO BID #14 tablet 07/26/19 Unknown Rx [Bactrim DS TAB] Azithromycin [Zithromax Z-TERE] 1 dose PO DAILY 5 Days tab 07/30/19 Unknown Rx Codeine Phosphate/Guaifenesin 10 ml PO Q6H PRN #15 dose 07/30/19 Unknown Rx [Guaifenesin-Codeine Syrup] Prednisone [predniSONE 10 mg 10 mg PO .TAPER #1 tab.ds.pk 07/30/19 Unknown Rx (6-Day Pack, 21 Tabs)] Phenazopyridine [Pyridium] 100 mg PO TID #5 tab 08/20/19 Unknown Rx cephALEXin [Keflex] 500 mg PO Q6HR #28 capsule 08/20/19 Unknown Rx ED Physical Exam - General Limitations: No Limitations ED Course Vital Signs 08/20/19 08/20/19 08/20/19 02:35 04:05 04:15 Temperature 97.7 F Pulse Rate 95 H Respiratory 18 Rate Blood Pressure 178/95 146/68 O2 Sat by Pulse 97 93 93 Oximetry 08/20/19 04:46 Temperature Pulse Rate 74 Respiratory Rate Blood Pressure O2 Sat by Pulse Oximetry ED Medical Decision Making - Lab Data Result diagrams: 08/20/19 03:53 08/20/19 03:53 Lab Results 08/20/19 08/20/19 08/20/19 Range/Units 03:53 03:53 04:11 WBC 9.7 (4.5-11.0) K/mm3 RBC 3.58 L (3.65-5.03) M/mm3 Hgb 11.9 (11.8-15.2) gm/dl Hct 35.0 L (35.5-45.6) % MCV 98 H (84-94) fl MCH 33 H (28-32) pg MCHC 34 (32-34) % RDW 13.1 L (13.2-15.2) % Plt Count 259 (140-440) K/mm3 Lymph % (Auto) 8.1 L (13.4-35.0) % [place] % (Auto) 8.5 H (0.0-7.3) % Eos % (Auto) 0.6 (0.0-4.3) % Baso % (Auto) 0.2 (0.0-1.8) % Lymph # 0.8 L (1.2-5.4) K/mm3 [place] # 0.8 (0.0-0.8) K/mm3 Eos # 0.1 (0.0-0.4) K/mm3 Baso # 0.0 (0.0-0.1) K/mm3 Seg Neutrophils % 82.6 H (40.0-70.0) % Seg Neutrophils # 8.0 H (1.8-7.7) K/mm3 Sodium 127 L (137-145) mmol/L Potassium 4.3 (3.6-5.0) mmol/L Chloride 87.3 L (98-107) mmol/L Carbon Dioxide 26 (22-30) mmol/L Anion Gap 18 mmol/L BUN 13 (9-20) mg/dL Creatinine 0.7 L (0.8-1.5) mg/dL Estimated GFR > 60 ml/min BUN/Creatinine Ratio 19 % Glucose 180 H (75-100) mg/dL Calcium 9.4 (8.4-10.2) mg/dL Urine Color Yellow (Yellow) Urine Turbidity Turbid (Clear) Urine pH 8.0 H (5.0-7.0) Ur Specific [place] 1.024 (1.003-1.030) Urine Protein >500 (Negative) mg/dL Urine Glucose (UA) Neg (Negative) mg/dL Urine Ketones Neg (Negative) mg/dL Urine Blood Neg (Negative) Urine Nitrite Neg (Negative) Urine Bilirubin Neg (Negative) Urine Urobilinogen < 2.0 (<2.0) mg/dL Ur Leukocyte Esterase Mod (Negative) Urine WBC (Auto) 20.0 H (0.0-6.0) /HPF Urine RBC (Auto) 7.0 (0.0-6.0) /HPF Urine Bacteria (Auto) 1+ (Negative) /HPF Amorphous Crystals Few Urine Mucus 3+ /HPF Urine Opiates Screen Urine Methadone Screen Ur Barbiturates Screen Ur Phencyclidine Scrn Ur Amphetamines Screen U Benzodiazepines Scrn Urine Cocaine Screen U Marijuana (THC) Screen Drugs of Abuse Note 08/20/19 Range/Units 04:11 WBC (4.5-11.0) K/mm3 RBC (3.65-5.03) M/mm3 Hgb (11.8-15.2) gm/dl Hct (35.5-45.6) % MCV (84-94) fl MCH (28-32) pg MCHC (32-34) % RDW (13.2-15.2) % Plt Count (140-440) K/mm3 Lymph % (Auto) (13.4-35.0) % [place] % (Auto) (0.0-7.3) % Eos % (Auto) (0.0-4.3) % Baso % (Auto) (0.0-1.8) % Lymph # (1.2-5.4) K/mm3 [place] # (0.0-0.8) K/mm3 Eos # (0.0-0.4) K/mm3 Baso # (0.0-0.1) K/mm3 Seg Neutrophils % (40.0-70.0) % Seg Neutrophils # (1.8-7.7) K/mm3 Sodium (137-145) mmol/L Potassium (3.6-5.0) mmol/L Chloride (98-107) mmol/L Carbon Dioxide (22-30) mmol/L Anion Gap mmol/L BUN (9-20) mg/dL Creatinine (0.8-1.5) mg/dL Estimated GFR ml/min BUN/Creatinine Ratio % Glucose (75-100) mg/dL Calcium (8.4-10.2) mg/dL Urine Color (Yellow) Urine Turbidity (Clear) Urine pH (5.0-7.0) Ur Specific [place] (1.003-1.030) Urine Protein (Negative) mg/dL Urine Glucose (UA) (Negative) mg/dL Urine Ketones (Negative) mg/dL Urine Blood (Negative) Urine Nitrite (Negative) Urine Bilirubin (Negative) Urine Urobilinogen (<2.0) mg/dL Ur Leukocyte Esterase (Negative) Urine WBC (Auto) (0.0-6.0) /HPF Urine RBC (Auto) (0.0-6.0) /HPF Urine Bacteria (Auto) (Negative) /HPF Amorphous Crystals Urine Mucus /HPF Urine Opiates Screen Presumptive positive Urine Methadone Screen Presumptive negative Ur Barbiturates Screen Presumptive negative Ur Phencyclidine Scrn Presumptive negative Ur Amphetamines Screen Presumptive negative U Benzodiazepines Scrn Presumptive negative Urine Cocaine Screen Presumptive negative U Marijuana (THC) Screen Presumptive negative Drugs of Abuse Note Disclamer - Medical Decision Making Coud Noel was placed without difficulty by nurse. Urine output 300 mL initially with cloudy yellow urine. UA reveals UTI. Patient treated with 1 dose of IV Rocephin in the ED and additional antibiotics will be prescribed. Hyponatremia noted and is chronic with sodium greater than 120. Patient also provided Pyridium to help with burning sensation at tip of penis. He states this medication has helped in the past. 1 L of normal saline provided prior to discharge - Differential Diagnosis Urinary retention, UTI Critical Care Time: No Critical care attestation.: If time is entered above; I have spent that time in minutes in the direct care of this critically ill patient, excluding procedure time. ED Disposition Clinical Impression: Urine retention, UTI (urinary tract infection), Chronic hyponatremia Disposition: TO HOME OR SELFCARE Is pt being admited?: No Does the pt Need Aspirin: No Condition: Stable Instructions: Urinary Tract Infection in Men (ED), Noel Catheter Placement and Care (ED), Urinary Retention in Men (ED), Hyponatremia (ED) Additional Instructions: Take the medication as prescribed. Follow-up with your doctor or doctor/clinic provided. Return if symptoms worsen as indicated by your discharge instructions. Prescriptions: cephALEXin [Keflex] 500 mg PO Q6HR #28 capsule Phenazopyridine [Pyridium] 100 mg PO TID #5 tab Referrals: PRIMARY CARE, [Primary Care Provider] - 3-5 Days urology, [Other] - 3-5 Days
[2019-08-20 04:40] LABS: Protein,Urine >500 mg/dL (Negative)
[2019-08-20 04:56] LABS: Cannabinoid Screen,Urine PRESUMPTIVE NEGATIVE; Opiate Screen,Urine PRESUMPTIVE POSITIVE
[2019-08-20] MEDS ORDERED: SODIUM CHLORIDE 0.9% 1000 ML 1,000 ML IV ONE (05:21)
[2019-08-20] MEDS ORDERED: cefTRIAXone/NS 1 GM/50 ML 1 GM/50 ML BAG IV ONE (05:25)
[2019-08-20 07:53] VITALS: BP 138/70
== END 2019-08-20 07:45 | disposition home or self-care (01) ==
LOC: ED 02:28
DX: R33.8 Other retention of urine (principal); N39.0 Urinary tract infection, site not specified; E87.1 Hypo-osmolality and hyponatremia; F15.10 Other stimulant abuse, uncomplicated; Z79.899 Other long term (current) drug therapy; Z91.041 Radiographic dye allergy status; Z88.1 Allergy status to other antibiotic agents
CPT/HCPCS: 36415; 51702; 80048; 80307; 81001; 82962; 85025; 87076; 87086; 87186; 96365; 96375; 99283; J0696; J1170; J2405; J7030

== ENCOUNTER 2020-01-28 04:17 | Emergency (ER) | payer MEDICARE ==
[2020-01-28 04:32] VITALS: BP 121/61
--- NOTE | 2020-01-28 05:22 | Emergency Department Report ---
ED Male HPI - General Chief complaint: Urogenital-Male Stated complaint: BASILIO CATHETER REPLACEMENT Time Seen by Provider: 01/28/20 05:01 Source: patient Mode of arrival: Ambulatory Limitations: No Limitations - History of Present Illness Initial comments: Patient is a 79-year-old that presents emergency room with complaints that his Basilio has moved and he feels like it is come out and the patient having lower abdominal pain. Patient states that the catheter was put in at [place] on Friday for urinary retention and a prostate infection. Patient states he is currently taking his antibiotics. Patient states he is compliant with all his medications. Patient states the pain is a 6 out of 10. Patient states the pain is better with rest and worse with movement. Patient denies fever and chills. -: Sudden Severity: severe Quality: stabbing Consistency: constant Improves with: rest Worsens with: palpation, movement - Related Data Sexually active: No Home Medications Medication Instructions Recorded Confirmed Last Taken Insulin Aspart Prot/Aspart(Nf) 12 unit SQ QPM 04/02/13 04/06/19 04/05/19 [NovoLOG Mix 70/30 VIAL] Insulin Aspart Prot/Aspart(Nf) 30 unit SQ QAM 04/02/13 04/06/19 04/05/19 [NovoLOG Mix 70/30 VIAL] Metformin HCl [metFORMIN ER] 500 mg PO BID 04/02/13 04/06/19 04/05/19 carvediloL [Coreg] 25 mg PO BID 04/02/13 04/06/19 04/05/19 lisinopriL [Zestril TAB] 40 mg PO QDAY 04/02/13 04/06/19 04/05/19 Cholecalciferol (Vitamin D3) 1,000 units PO DAILY 05/31/15 04/06/19 04/05/19 [Vitamin D3 2,000 UNIT CAP] Oxybutynin [Ditropan] 1 tab PO DAILY 05/31/15 04/06/19 04/05/19 Vitamin E 1,000 unit PO DAILY 05/31/15 04/06/19 04/05/19 Acetaminophen with Codeine 1 each PO Q6HR PRN 08/05/15 04/06/19 04/05/19 [Acetaminophen-Codeine #2 TAB] B Cmplx 4/Vit D3/C/Folic/Zinc 1 each PO QDAY 08/05/15 04/06/19 04/05/19 [Vital-D Rx Tablet] Finasteride [Proscar] 5 mg PO QDAY 08/05/15 04/06/19 04/05/19 Omeprazole [PriLOSEC] 40 mg PO QDAY 08/05/15 04/06/19 04/05/19 Previous Rx's Medication Instructions Recorded Last Taken Type Aspirin EC [Halfprin EC] 81 mg PO QDAY #30 tablet.dr 06/03/15 04/05/19 Rx ISOSORBIDE MONOnitrate [Imdur ER] 30 mg PO DAILY #30 tab.er.24h 06/03/15 04/05/19 Rx amLODIPine 10 mg PO QDAY #30 tablet 06/03/15 04/05/19 Rx cefUROXime [Ceftin] 250 mg PO Q12H #12 tablet 04/08/19 Unknown Rx Nitrofurantoin [place]/M-Cryst 100 mg PO Q12HR 7 Days #14 capsule 06/05/19 Unknown Rx [Macrobid CAP] HYDROcodone/APAP 5-325 [[place] 1 each PO Q6HR PRN #10 tablet 07/04/19 Unknown Rx 5/325] Ciprofloxacin HCl [Ciprofloxacin 500 mg PO Q12HR #14 tab 07/25/19 Unknown Rx TAB] Furosemide [Lasix TAB] 40 mg PO QDAY #30 tablet 07/25/19 Unknown Rx Phenazopyridine [Pyridium] 200 mg PO BID #6 tab 07/25/19 Unknown Rx traMADoL [Ultram] 50 mg PO Q6HR PRN #12 tablet 07/25/19 Unknown Rx Acetaminophen/Codeine [Tylenol 1 tab PO Q6H PRN #15 tab 07/26/19 Unknown Rx /Codeine # 3 tab] Phenazopyridine [Pyridium] 200 mg PO BID #5 tab 07/26/19 Unknown Rx Sulfamethoxazole/Trimethoprim 1 each PO BID #14 tablet 07/26/19 Unknown Rx [Bactrim DS TAB] Azithromycin [Zithromax Z-TERE] 1 dose PO DAILY 5 Days tab 07/30/19 Unknown Rx Codeine Phosphate/Guaifenesin 10 ml PO Q6H PRN #15 dose 07/30/19 Unknown Rx [Guaifenesin-Codeine Syrup] Prednisone [predniSONE 10 mg 10 mg PO .TAPER #1 tab.ds.pk 07/30/19 Unknown Rx (6-Day Pack, 21 Tabs)] Phenazopyridine [Pyridium] 100 mg PO TID #5 tab 08/20/19 Unknown Rx cephALEXin [Keflex] 500 mg PO Q6HR #28 capsule 08/20/19 Unknown Rx Allergies Allergy/AdvReac Type Severity Reaction Status Date / Time diphenhydramine HCl Allergy Rash Verified 05/31/15 18:24 [From Benadryl] Iodinated Contrast Media Allergy Rash Verified 05/31/15 18:24 [Iodinated Contrast Media - IV Dye] ED Review of Systems ROS: Stated complaint: BASILIO CATHETER REPLACEMENT Other details as noted in HPI Comment: All other systems reviewed and negative ED Past Medical Hx - Past Medical History Previous Medical History?: Yes Hx Hypertension: Yes Hx Heart Attack/AMI: No Hx Congestive Heart Failure: No Hx Diabetes: Yes Hx Deep Vein Thrombosis: No Hx Pulmonary Embolism: No Hx GERD: Yes Hx Liver Disease: No Hx Arthritis: Yes Hx Psychiatric Treatment: Yes (schizophrenia) Hx Asthma: Yes Hx COPD: Yes Hx Tuberculosis: No Additional medical history: hyperlipidemia, malignant neoplasm of prostate, benign prostatic hyperplasia and anemia - Surgical History Past Surgical History?: Yes Hx Coronary Stent: No Hx Pacemaker: No Hx Internal Defibrillator: No Additional Surgical History: cataract surgery both eyes, hemorrhoidectomy - Family History Family history: no significant - Social History Smoking Status: Former Smoker Substance Use Type: None - Medications Home Medications: Home Medications Medication Instructions Recorded Confirmed Last Taken Type Insulin Aspart Prot/Aspart(Nf) 12 unit SQ QPM 04/02/13 04/06/19 04/05/19 History [NovoLOG Mix 70/30 VIAL] Insulin Aspart Prot/Aspart(Nf) 30 unit SQ QAM 04/02/13 04/06/19 04/05/19 History [NovoLOG Mix 70/30 VIAL] Metformin HCl [metFORMIN ER] 500 mg PO BID 04/02/13 04/06/19 04/05/19 History carvediloL [Coreg] 25 mg PO BID 04/02/13 04/06/19 04/05/19 History lisinopriL [Zestril TAB] 40 mg PO QDAY 04/02/13 04/06/19 04/05/19 History Cholecalciferol (Vitamin D3) 1,000 units PO DAILY 05/31/15 04/06/19 04/05/19 History [Vitamin D3 2,000 UNIT CAP] Oxybutynin [Ditropan] 1 tab PO DAILY 05/31/15 04/06/19 04/05/19 History Vitamin E 1,000 unit PO DAILY 05/31/15 04/06/19 04/05/19 History Aspirin EC [Halfprin EC] 81 mg PO QDAY #30 tablet.dr 06/03/15 04/06/19 04/05/19 Rx ISOSORBIDE MONOnitrate [Imdur ER] 30 mg PO DAILY #30 tab.er.24h 06/03/15 04/06/19 04/05/19 Rx amLODIPine 10 mg PO QDAY #30 tablet 06/03/15 04/06/19 04/05/19 Rx Acetaminophen with Codeine 1 each PO Q6HR PRN 08/05/15 04/06/19 04/05/19 History [Acetaminophen-Codeine #2 TAB] B Cmplx 4/Vit D3/C/Folic/Zinc 1 each PO QDAY 08/05/15 04/06/19 04/05/19 History [Vital-D Rx Tablet] Finasteride [Proscar] 5 mg PO QDAY 08/05/15 04/06/19 04/05/19 History Omeprazole [PriLOSEC] 40 mg PO QDAY 08/05/15 04/06/19 04/05/19 History cefUROXime [Ceftin] 250 mg PO Q12H #12 tablet 04/08/19 Unknown Rx Nitrofurantoin [place]/M-Cryst 100 mg PO Q12HR 7 Days #14 capsule 06/05/19 Unknown Rx [Macrobid CAP] HYDROcodone/APAP 5-325 [[place] 1 each PO Q6HR PRN #10 tablet 07/04/19 Unknown Rx 5/325] Ciprofloxacin HCl [Ciprofloxacin 500 mg PO Q12HR #14 tab 07/25/19 Unknown Rx TAB] Furosemide [Lasix TAB] 40 mg PO QDAY #30 tablet 07/25/19 Unknown Rx Phenazopyridine [Pyridium] 200 mg PO BID #6 tab 07/25/19 Unknown Rx traMADoL [Ultram] 50 mg PO Q6HR PRN #12 tablet 07/25/19 Unknown Rx Acetaminophen/Codeine [Tylenol 1 tab PO Q6H PRN #15 tab 07/26/19 Unknown Rx /Codeine # 3 tab] Phenazopyridine [Pyridium] 200 mg PO BID #5 tab 07/26/19 Unknown Rx Sulfamethoxazole/Trimethoprim 1 each PO BID #14 tablet 07/26/19 Unknown Rx [Bactrim DS TAB] Azithromycin [Zithromax Z-TERE] 1 dose PO DAILY 5 Days tab 07/30/19 Unknown Rx Codeine Phosphate/Guaifenesin 10 ml PO Q6H PRN #15 dose 07/30/19 Unknown Rx [Guaifenesin-Codeine Syrup] Prednisone [predniSONE 10 mg 10 mg PO .TAPER #1 tab.ds.pk 07/30/19 Unknown Rx (6-Day Pack, 21 Tabs)] Phenazopyridine [Pyridium] 100 mg PO TID #5 tab 08/20/19 Unknown Rx cephALEXin [Keflex] 500 mg PO Q6HR #28 capsule 08/20/19 Unknown Rx ED Physical Exam - General Limitations: No Limitations General appearance: alert, in no apparent distress - Head Head exam: Present: atraumatic, normocephalic - Eye Eye exam: Present: normal appearance - ENT ENT exam: Present: mucous membranes moist - Neck Neck exam: Present: normal inspection - Respiratory Respiratory exam: Present: normal lung sounds bilaterally. Absent: respiratory distress - Cardiovascular Cardiovascular Exam: Present: regular rate, normal rhythm. Absent: systolic murmur, diastolic murmur, rubs, gallop - GI/Abdominal GI/Abdominal exam: Present: soft, tenderness, normal bowel sounds - Rectal Rectal exam: Present: deferred - Extremities Exam Extremities exam: Present: normal inspection - Back Exam Back exam: Present: normal inspection - Neurological Exam Neurological exam: Present: alert, oriented X3 - Psychiatric Psychiatric exam: Present: normal affect, normal mood - Skin Skin exam: Present: warm, dry, intact, normal color. Absent: rash ED Course Vital Signs 01/28/20 04:31 Temperature 98.3 F Pulse Rate 74 Respiratory 20 Rate Blood Pressure 121/61 O2 Sat by Pulse 96 Oximetry - Reevaluation(s) Reevaluation #1: Patient's Basilio catheter deflated and readjusted. Patient Basilio balloon reinflated and symptoms resolved. Patient has urine flow into the urine bag. It appears that the Basilio was dislodged and just needs to be readjusted and the Basilio is functioning well. Patient states his pain has resolved. Patient states he is symptom-free. Patient states he is feeling much better and ready to go home. I discussed all clinical findings with patient. I discussed plan of care with patient. Patient agrees with plan of care. Patient is stable for discharge. Patient will be discharged home. Patient given discharge instructions. Patient voiced understanding of discharge instructions. 01/28/20 05:19 01/28/20 05:23 ED Medical Decision Making - Medical Decision Making Patient is a 79-year-old male that presents emergency room for malfunctioning Basilio and abdominal pain. Patient's Basilio was adjusted and his pain completely resolved. Patient had positive flow of urine into his Basilio after the adjustment. Patient is stable for discharge. Patient not require further evaluation in the ER. Patient will be sent home with discharge instructions. - Differential Diagnosis Displaced, malfunctioning Basilio. Abdominal pain. Urinary retention Critical care attestation.: If time is entered above; I have spent that time in minutes in the direct care of this critically ill patient, excluding procedure time. ED Disposition Clinical Impression: Malfunction of Basilio catheter Qualifiers: Encounter type: initial encounter Qualified Code(s): T83.011A - Breakdown (mechanical) of indwelling urethral catheter, initial encounter Prostatitis Qualifiers: Prostatitis type: unspecified Qualified Code(s): N41.9 - Inflammatory disease of prostate, unspecified Disposition: DC-01 TO HOME OR SELFCARE Is pt being admited?: No Does the pt Need Aspirin: No Condition: Stable Instructions: Urinary Leg Bag (GEN), Basilio Catheter Placement and Care (ED) Additional Instructions: Patient to follow-up with primary care in 2 to 3 days. Patient to follow-up with urologist in 2 to 3 days. Patient to rest. Patient to increase water. Patient to take Tylenol as needed for pain. Patient to continue all medications. Patient to complete antibiotics. Patient to keep Basilio in place until removed by urologist. Patient to return to the ER if condition worsens, changes or new symptoms arise. Time of Disposition: 05:23
== END 2020-01-28 05:35 | disposition home or self-care (01) ==
LOC: ED 04:17
DX: T83.011A Breakdown (mechanical) of indwelling urethral catheter, initial encounter (principal); N41.9 Inflammatory disease of prostate, unspecified; I10 Essential (primary) hypertension; E11.9 Type 2 diabetes mellitus without complications; J44.9 Chronic obstructive pulmonary disease, unspecified; M13.88 Other specified arthritis, other site; K21.9 Gastro-esophageal reflux disease without esophagitis; F20.89 Other schizophrenia; Z86.2 Personal history of diseases of the blood and blood-forming organs and certain disorders involving the immune mechanism; Z98.890 Other specified postprocedural states; Z79.4 Long term (current) use of insulin; Z79.899 Other long term (current) drug therapy; Z87.891 Personal history of nicotine dependence; Z88.1 Allergy status to other antibiotic agents; Z91.041 Radiographic dye allergy status
CPT/HCPCS: 99281